=== PATIENT | male | born 2005 | race Caucasian/White ===

== ENCOUNTER 2024-03-29 19:12 | Emergency (ER) | payer BC, SELFPAY ==
[2024-03-29] VITALS (18 sets, daily range): BP systolic 126–150; BP diastolic 72–86; PULSE 70–76; TEMP 36.6–37.1; O2SAT 96–100; BMI 21.7
--- NOTE | 2024-03-29 19:37 | ED.NAVMDI1 ---
HPI - Nausea/Vomiting/Diarrhea General Chief complaint: Nausea/Vomiting/Diarrhea Stated complaint: VOMITING Time Seen by Provider: 03/29/24 19:25 Source: patient Mode of arrival: walk-in History of Present Illness HPI Narrative: This 18-year-old male who is home for [facility] is brought to the emergency department by his mother for evaluation of nausea and vomiting. The patient has had similar symptoms in the past and has had endoscopy at [facility]. The patient states that the symptoms started last summer when the patient was on vacation with his girlfriend's family and was out to dinner and started feeling nauseated. He has been having episodes of nausea and vomiting for the past 2 days. He cannot count the number of times he has vomited. He flatly denies that he uses any marijuana products. He denies any abdominal pain. He has lost weight. He is a college student and also plays football. The patient has recently been seen by [facility] and has an appointment tomorrow. He was started on Zoloft 2 days ago. The mother states he had reflux as a child. A biopsy was taken when he had his endoscopy that was normal. He has not had any diarrhea. He states that he vomits sometimes spit, sometimes bile and if he has eaten he vomits the food he has eaten. Related Data Allergies Allergy/AdvReac Type Severity Reaction Status Date / Time azithromycin (From Zithromax) Allergy Severe Hives Verified 03/29/24 19:23 ceftriaxone (From Rocephin) Allergy Severe Hives Verified 03/29/24 19:23 acutain Allergy Severe Rash Uncoded 03/29/24 19:23 Review of Systems ROS Status of ROS 10 or more systems reviewed and unremarkable except as noted in history and below [facility] Social History Little interest or pleasure in doing things: not at all Feeling down, depressed, or hopeless: not at all Exam Narrative Exam Narrative: Vital signs and Nursing Notes reviewed: Patient is afebrile with a normal pulse, blood pressure is mildly elevated at 150/86, he is not hypoxic with pulse ox of 100% on room air General: Awake, alert, oriented, no acute distress, shy, tearful, no respiratory distress no active vomiting noted HEENT: Normocephalic atraumatic, mucous membranes are slightly dry, no scleral icterus Neck: Supple, no meningeal signs, no anterior or posterior cervical lymphadenopathy Chest: Lungs are clear to auscultation with good air entry, there is no wheezing rhonchi or rales appreciated no accessory muscle use, patient is speaking in complete sentences-no chest wall tenderness to palpation CVS: Regular rate and rhythm S1-S2, no murmurs rubs or gallops, pulses are brisk and equal bilaterally ABD: Soft, flat, nondistended, nontender, no rebound guarding or rigidity, bowel sounds are normal, no pulsatile masses appreciated Extremities: Moving all extremities, no lower extremity tenderness or swelling noted, negative Homans' sign, pulses are brisk and equal bilaterally Skin: Normal in appearance without rash,pallor, petechiae or purpura Neuro: No focal deficits Constitutional Vital Signs, click to edit/add: Last Vital Signs Temp 98.4 F 03/29/24 22:46 Pulse 70 03/29/24 22:46 Resp 18 03/29/24 22:46 BP 142/74 H 03/29/24 22:46 Pulse Ox 100 03/29/24 22:46 O2 Del Method Room Air 03/29/24 22:46 Course Vital Signs Vital signs: Vital Signs Temperature 97.9 F 03/29/24 19:14 Pulse Rate 76 03/29/24 19:14 Respiratory Rate 16 03/29/24 19:14 Blood Pressure 150/86 H 03/29/24 19:14 Pulse Oximetry 100 03/29/24 19:14 Oxygen Delivery Method Room Air 03/29/24 19:14 Temperature 98.4 F 03/29/24 22:46 Pulse Rate 70 03/29/24 22:46 Respiratory Rate 18 03/29/24 22:46 Blood Pressure 142/74 H 03/29/24 22:46 Pulse Oximetry 100 03/29/24 22:46 Oxygen Delivery Method Room Air 03/29/24 22:46 MDM - Nausea/Vomiting/Diarrhea MDM Narrative Medical decision making narrative: This 18-year-old male is brought to emergency department by his mother for evaluation of 2 days of vomiting. He has had similar symptoms in the past and has had a normal endoscopy. He was recently started on Zoloft after he had some degree of a panic attack while being home from college. The symptoms started last summer. He has had intermittent episodes since that time. The patient states that he vomits almost every day. He flatly denies any marijuana use. He denies any abdominal pain but has had weight loss. An IV was placed and routine labs were ordered. He has a normal white count and hemoglobin. He has an elevated BUN and creatinine likely due to dehydration. He does have a mildly elevated total bilirubin of 1.8. Lipase is normal. Lactic acid is also mildly elevated at 2.1. He received IV fluids, Zofran, Pepcid and 0.5 mg of Ativan. On reevaluation he states he is feeling better and is tolerating oral Gatorade.. The patient has never had a CT scan of the abdomen pelvis as part of his workup. This was ordered during his ER stay at this time. CT scan of the abdomen pelvis is basically normal. The results were discussed with the patient and his mother and he was given a copy for his records and to share with his family doctor. He is feeling better and tolerating Gatorade and a popsicle. He does have follow-up tomorrow with [facility]. I explained to him that his symptoms may be anxiety related but he should continue his proton pump inhibitors, I will give him prescriptions for both Zofran and Reglan as he has used both in the past with different results. He was also given a prescription for Pepcid. He was encouraged to drink plenty of fluids to try to prevent himself from becoming dehydrated, eat small meals and follow-up closely with his family physician and gastroenterology. Medical Records Medical records narrative: The [address] [address] [address] Scan Report Signed Patient: FREDDIE DAVENPORT MR#: [id number] : 2005 Acct:[id number] Age/Sex: 18 / M ADM Date: 03/29/24 Loc: ER Attending Dr: Ordering Physician: Marbella Foy Date of Service: 03/29/24 Procedure(s): CT abdomen pelvis w con Accession Number(s): [id number] cc: FRANK RAMIREZ ~ The [address] [address] Patient Name: FREDDIE DAVENPORT MRN: [id number] date: 2005 Sex: M Assigned Patient Location: ER Current Patient Location: ER Accession/Order Number: [id number] Exam Date: 03/29/2024 21:20 Report Date: 03/29/2024 22:03 At the request of: MARBELLA MARKER Procedure: CT abdomen pelvis w con EXAM: CT abdomen pelvis w con TECHNIQUE: Axial CT images were obtained of the abdomen and pelvis with intravenous contrast. Sagittal and coronal reformatted images were also obtained. Dose reduction techniques were achieved by using automated exposure control and/or adjustment of mA and/or kV according to patient size and/or use of iterative reconstruction technique. HISTORY: N/V elevated LFTs COMPARISON: None. FINDINGS: Lower chest: The lower lungs are clear. Liver: The liver is homogeneous with normal contours and normal size. Gallbladder: The gallbladder is unremarkable. There is no intra or extrahepatic biliary dilatation. Pancreas: The pancreas is homogeneous without evidence for mass lesion or inflammation. Spleen: The spleen is unremarkable without evidence for mass lesion. Adrenal glands: The adrenal glands are unremarkable Kidneys and bladder: The kidneys are unremarkable with no evidence for mass lesion, hydronephrosis or inflammation. The ureters demonstrate normal caliber. The urinary bladder is unremarkable. GI Tract: Stomach is unremarkable. Visualized small bowel is unremarkable without evidence for obstruction or active inflammation. The appendix is unremarkable.The visualized portion of the large bowel is unremarkable. Reproductive: Unremarkable Lymph nodes: No retroperitoneal or abdominal lymphadenopathy. Vascular: The aorta is not dilated. Mesenteric, renal and iliac arteries are patent. Peritoneum: No free intraperitoneal air or fluid. No acute inflammation. Abdominal wall: Unremarkable without acute abnormality. CT/CT abdomen pelvis w con IMPRESSION: No acute abdominal pathology. No acute inflammatory process. No obstructing urinary tract stone. No evidence for bowel obstruction. Electronically authenticated by: RIKI JOHN Date: 03/29/2024 22:03 Lab Data Attestation: I reviewed the patient's lab results. Labs: Lab Results 03/29/24 Range/Units 19:50 WBC 7.9 (4.0-11.0) 10^3/uL RBC 5.80 (4.70-6.10) 10^6/uL Hgb 16.7 (14.0-18.0) g/dL Hct 46.6 (42.0-54.0) % MCV 80.3 (80.0-94.0) fL MCH 28.8 (25.9-34.0) pg MCHC 35.8 H (29.9-35.2) g/dL RDW 11.5 (11.0-15.0) % Plt Count 278 (150-450) 10^3/uL MPV 10.5 (9.5-13.5) fL Neut % (Auto) 77.7 H (43.0-75.0) % Lymph % (Auto) 13.4 L (20.5-60.0) % Sterling % (Auto) 7.4 (1.7-12.0) % Eos % (Auto) 0.4 L (0.9-7.0) % Baso % (Auto) 0.6 (0.2-2.0) % Neut # (Auto) 6.2 (1.4-6.5) 10^3/uL Lymph # (Auto) 1.1 L (1.2-3.8) 10^3/uL Sterling # (Auto) 0.6 (0.3-0.8) 10^3/uL Eos # (Auto) 0.0 (0.0-0.7) 10^3/uL Baso # (Auto) 0.1 (0.0-0.1) 10^3/uL Abs Immat Gran (auto) 0.04 H (0.00-0.03) 10^3/uL Imm/Tot Granulo (auto) 0.5 (0.0-0.5) % Sodium 141 (136-145) mmol/L Potassium 3.4 L (3.5-5.1) mmol/L Chloride 102 (98-107) mmol/L Carbon Dioxide 24.5 (21.0-32.0) mmol/L Anion Gap 17.9 BUN 22.0 H (7.0-18.0) mg/dL Creatinine 1.33 H (0.70-1.30) mg/dL Est GFR ( Amer) >60 (>=60 mL/min/1.73m^2) Est GFR (Non-Af Amer) >60 (>=60 mL/min/1.73m^2) BUN/Creatinine Ratio 16.5 Glucose 109 H (74-106) mg/dL Lactate 2.1 H (0.4-2.0) mmol/L Calcium 10.2 H (8.5-10.1) mg/dL Total Bilirubin 1.8 H (0.2-1.0) mg/dL AST 13 L (15-37) U/L ALT 22 (16-63) U/L Alkaline Phosphatase 99 (46-116) U/L Total Protein 8.2 (6.4-8.2) g/dL Albumin 4.7 (3.4-5.0) g/dL Globulin 3.5 g/dL Albumin/Globulin Ratio 1.3 Lipase 16.0 (16.0-77.0) U/L Discharge Plan Discharge Chief Complaint: Nausea/Vomiting/Diarrhea Clinical Impression: Nausea and vomiting, Mild dehydration Patient Disposition: Home, Self-Care Time of Disposition Decision: 22:33 Condition: Good Print Language: Vietnamese Instructions: Dehydration (ED), Acute Nausea and Vomiting (ED) Referrals: FRANK RAMIREZ [Primary Care Provider] - 1 week Discharge Date/Time: 03/29/24 22:50
[2024-03-29 20:02] LABS: Basophils Absolute Auto 0.1 10^3/uL (0.0-0.1); Basophils Percent Auto 0.6 % (0.2-2.0); Eosinophils Percent Auto 0.4 % (0.9-7.0); Hematocrit 46.6 % (42.0-54.0); Hemoglobin 16.7 g/dL (14.0-18.0); Immature Granulocytes Abs Auto 0.04 10^3/uL (0.00-0.03); Immature Granulocytes Pct Auto 0.5 % (0.0-0.5); Lymphocytes Absolute Auto 1.1 10^3/uL (1.2-3.8); Lymphocytes Percent Auto 13.4 % (20.5-60.0); Mean Corpuscular HGB Conc 35.8 g/dL (29.9-35.2); Mean Corpuscular Hemoglobin 28.8 pg (25.9-34.0); Mean Corpuscular Volume 80.3 fL (80.0-94.0); Mean Platelet Volume 10.5 fL (9.5-13.5); Monocytes Absolute Auto 0.6 10^3/uL (0.3-0.8); Monocytes Percent Auto 7.4 % (1.7-12.0); Neutrophils Absolute Auto 6.2 10^3/uL (1.4-6.5); Neutrophils Percent Auto 77.7 % (43.0-75.0); Platelet Count 278 10^3/uL (150-450); Red Cell Distribution Width 11.5 % (11.0-15.0); White Blood Count 7.9 10^3/uL (4.0-11.0)
[2024-03-29] MEDS: 0.9 % SODIUM CHLORIDE 1,000 ML 1000 ML IV (20:19)
[2024-03-29] MEDS: FAMOTIDINE/PF 20 MG/2 ML VIAL IV (20:20)
[2024-03-29] MEDS: ONDANSETRON PF 4 MG/2 ML VIAL IV (20:20)
[2024-03-29] MEDS: LORAZEPAM 2 MG/ML VIAL 0.5 MG IV (20:20)
[2024-03-29 20:26] LABS: Alanine Aminotransferase 22 U/L (16-63); Albumin Globulin Ratio 1.3; Albumin Level 4.7 g/dL (3.4-5.0); Alkaline Phosphatase 99 U/L (46-116); Anion Gap 17.9; Aspartate Amino Transferase 13 U/L (15-37); BUN Creatinine Ratio 16.5; Bilirubin Total 1.8 mg/dL (0.2-1.0); Calcium 10.2 mg/dL (8.5-10.1); Carbon Dioxide 24.5 mmol/L (21.0-32.0); Chloride 102 mmol/L (98-107); Estimated GFR (African America >60 (>=60 mL/min/1.73m^2); Estimated GFR (Non-African Ame >60 (>=60 mL/min/1.73m^2); Globulin 3.5 g/dL; Glucose 109 mg/dL (74-106); Potassium 3.4 mmol/L (3.5-5.1); Sodium 141 mmol/L (136-145); Total Protein 8.2 g/dL (6.4-8.2)
[2024-03-29 20:27] LABS: Lactate/Lactic Acid 2.1 mmol/L (0.4-2.0)
--- NOTE | 2024-03-29 21:00 | CT_ITS ---
[address] [address] Patient Name: FREDDIE DAVENPORT MRN: [id number] date: 2005 Sex: M Assigned Patient Location: ER Current Patient Location: Accession/Order Number: [id number] Exam Date: 03/29/2024 21:20 Report Date: 03/29/2024 22:03 At the request of: LC MARKER Procedure: CT abdomen pelvis w con EXAM: CT abdomen pelvis w con TECHNIQUE: Axial CT images were obtained of the abdomen and pelvis with intravenous contrast. Sagittal and coronal reformatted images were also obtained. Dose reduction techniques were achieved by using automated exposure control and/or adjustment of mA and/or kV according to patient size and/or use of iterative reconstruction technique. HISTORY: N/V elevated LFTs COMPARISON: None. FINDINGS: Lower chest: The lower lungs are clear. Liver: The liver is homogeneous with normal contours and normal size. Gallbladder: The gallbladder is unremarkable. There is no intra or extrahepatic biliary dilatation. Pancreas: The pancreas is homogeneous without evidence for mass lesion or inflammation. Spleen: The spleen is unremarkable without evidence for mass lesion. Adrenal glands: The adrenal glands are unremarkable Kidneys and bladder: The kidneys are unremarkable with no evidence for mass lesion, hydronephrosis or inflammation. The ureters demonstrate normal caliber. The urinary bladder is unremarkable. GI Tract: Stomach is unremarkable. Visualized small bowel is unremarkable without evidence for obstruction or active inflammation. The appendix is unremarkable.The visualized portion of the large bowel is unremarkable. Reproductive: Unremarkable Lymph nodes: No retroperitoneal or abdominal lymphadenopathy. Vascular: The aorta is not dilated. Mesenteric, renal and iliac arteries are patent. Peritoneum: No free intraperitoneal air or fluid. No acute inflammation. Abdominal wall: Unremarkable without acute abnormality. CT/CT abdomen pelvis w con IMPRESSION: No acute abdominal pathology. No acute inflammatory process. No obstructing urinary tract stone. No evidence for bowel obstruction. Electronically authenticated by: RIKI JOHN Date: 03/29/2024 22:03
--- NOTE | 2024-03-29 21:06 | PC.NURSE ---
this patient was given something to drink by Dr Foy, and i informed this patient of the new order for abdomen ct
--- NOTE | 2024-03-29 21:33 | PC.NURSE ---
patient aware waiting on ct results plus the re draw at 23:50, this patient voices no concerns and shows no signs distress
--- NOTE | 2024-03-29 22:48 | PC.NURSE ---
i gave this patient verbal and paper discharge orders along with 3 Rx and he voices yes to understanding these. at time of discharge this patient voices no concerns and shows no signs of distress
== END 2024-03-29 22:50 | disposition home or self-care (01) ==
PROVIDERS: Emergency Provider Emergency Medicine; PCP Family Medicine
DX: E86.0 Dehydration (principal); R11.2 Nausea with vomiting, unspecified
CPT/HCPCS: 36415; 74177; 80053; 83605; 83690; 85025; 96361; 96374; 96375; 99285; J2060; J2405; Q9967

== ENCOUNTER 2024-11-01 10:31 | Outpatient (OUT) | payer BC, SELFPAY ==
--- OUTSIDE RECORDS SUMMARY | 2024-11-01 10:00 | XMS_ITS | Encounter Summary ---
Author Organization [facility] Address [address] [place] [address] Care Team Providers Care Geriatric Social Worker Name Role Phone Raad Armstrong MD Primary Care Provider [phone] Jasmine Walter [facility] Unavailable [phone] Encounter Details Date Type Department Care Team (Late st Contact Info) Description 11/01/2024 10:00 AM EDT Office Visit [facility] [address] [place] [id number] Lynne Grimes, PHYSICS TEACHER [address] [place] [address] Acute pain of both knees (Primary Dx) Social History Tobacco Use Types Packs/Day Years Used Date Smoking Tobacco: Never Smokeless Tobacco: Never Tobacco Cessation:Counseling Given: Yes Alcohol Use Standard Drinks/Week Comments Not Currently 0 (1 standard drink = 0.6 oz pur e alcohol) caffiene- none AUDIT-C Answer Date Recorded Q1: How often do you have a drink containing alc ohol? Monthly or less 03/28/2024 Q2: How many drinks containi ng alcohol do you have on a typical day when you are drinking? 1 or 2 03/28/2024 Q3: How often do you have si x or more drinks on one occasion? Never 03/28/2024 PHQ-2 Answer Date Recorded Patient Health Questionnaire-2 Score 0 11/01/2024 Education Answer Date Recorded What is the highest level of school you have completed or the highest degree you have received? Some college, no degree 03/28/2024 Sex and Gender Information Value Date Recorded Sex Assigned at Not on file Legal Sex Male 6:43 PM EDT Gender Identity Not on file Sexual Orientation Not on file Occupation Industry Job Start Date Job End Date [employer] Not on file Not on file Not on file documented as of this encounter Last Filed Vital Signs Vital Sign Reading Time Taken Comments Blood Pressure 132/64 11/01/2024 10:04 AM EDT Pulse 84 11/01/2024 10:04 AM EDT Temperature - - Respiratory Rate 16 11/01/2024 10:04 AM EDT Oxygen Saturation 97% 11/01/2024 10:04 AM EDT Inhaled Oxygen Concentration - - Weight 85.7 kg (189 lb) 11/01/2024 10:04 AM EDT Height 182.9 cm (6') 11/01/2024 10:04 AM EDT Body Mass Index 25.63 11/01/2024 10:04 AM EDT documented in this encounter Functional Status * Over the past 2 weeks, how often have you been bothered by any of the following problems? Question Answer Date of Assessment Author Little interest or pleasure in doing things Not at all 11/01/2024 9:59 AM EDT MAKENZIE WHITEHEAD Feeling down, depressed, or hopeless Not at all 05/2024 9:59 AM EDT MAKENZIE WHITEHEAD Patient Health Questionnaire-2 Score 0 05/2024 9:59 AM EDT MAKENZIE WHITEHEAD documented as of this encounter Progress Notes * Lynne Grimes, ZACARIAS - 11/01/2024 10:00 AM EDT Images from the original note were not included. Subjective Patient ID: Emerson Taylor is a 19 y.o. male who presents for No chief complaint on file.. Emerson presents today forB/L knee pain when he is running or working out. He has had this knee pain for the last2 months . He even was just playing basketball and he had a hard time running. Knee Pain The incident occurred more than 1 week ago. Incident location: noticed it when working out doing squats. There was no injury mechanism. The pain is present in the right knee and left knee. The quality of the pain is described as aching. The pain is at a severity of 7/10 (pain is worse when running). The pain is moderate. The pain has been Fluctuating since onset. He reports no foreign bodies present. The symptoms are aggravated by weight bearing (running). He has tried ice and NSAIDs (ibuprofen) for the symptoms. The treatment provided mild relief. Over the past 2 weeks, how often have you been bothered by any of the following problems? Little interest or pleasure in doing things: Not at all Feeling down, depressed, or hopeless: Not at all Patient Health Questionnaire-2 Score: 0 Current Outpatient Medications on File Prior to Visit Medication Sig Dispense Refill buPROPion XL (Wellbutrin XL) 150 MG 24 hr tablet Take 150 mg by mouth in the morning. Multiple Vitamins-Minerals (MULTIVITAMIN GUMMIES MENS PO) Take by mouth (Patient not taking: Reported on 05/09/2024) omeprazole (PriLOSEC) [address] capsule Take 40 mg by mouth in the morning and 40 mg in the evening.Take before meals. No current facility-administered medications on file prior to visit. I have reviewed and reconciled the history and medication list with the patient today. Allergies Allergen Reactions Azithromycin Rash and Swelling Was a baby and not sure about allergy Ceftriaxone Hives and Swelling Was a child and not sure of reaction Social History Tobacco Use Smoking status: Never Smokeless tobacco: Never Vaping Use Vaping status: Never Used Substance Use Topics Alcohol use: Not Currently Comment: caffiene- none Drug use: Never No family history on file. Past Medical History: Diagnosis Date Abnormal laboratory test 11/17/2023 Anxiety Severe acute respiratory syndrome coronavirus 2 (SARS-CoV-2) detected 11/17/2023 Slow transit constipation 11/17/2023 History reviewed. No pertinent surgical history. Visit Vitals Smoking Status Never Review of Systems Constitutional: Negative. HENT: Negative. Eyes: Negative. Respiratory: Negative. Cardiovascular: Negative. Gastrointestinal: Negative. Genitourinary: Negative. Musculoskeletal: Negative. Skin: Negative. Neurological: Negative. Psychiatric/Behavioral: Negative. Objective Physical Exam Vitals reviewed. Constitutional: Appearance: Normal appearance. HENT: Head: Normocephalic. Nose: Nose normal. Mouth/Throat: Mouth: Mucous membranes are moist. Pharynx: Oropharynx is clear. Cardiovascular: Rate and Rhythm: Normal rate. Pulmonary: Effort: Pulmonary effort is normal. Musculoskeletal: Right knee: Swelling and effusion present. Left knee: Swelling and effusion present. Skin: General: Skin is warm and dry. Neurological: General: No focal deficit present. Mental Status: He is alert and oriented to person, place, and time. Psychiatric: Mood and Affect: Mood normal. Behavior: Behavior normal. Thought Content: Thought content normal. Judgment: Judgment normal. Assessment/Plan Diagnoses and all orders for this visit: Acute pain of both knees - predniSONE (Deltasone) 10 MG tablet; Take 4 tablets (40 mg) by mouth Daily for 4 days, THEN 3 tablets (30 mg) Daily for 4 days, THEN 2 tablets (20 mg) Daily for 4 days, THEN 1 tablet (10 mg) Daily for 4 days. - XR knee 3 views bilateral; Future Start the above medications as directed. Advised of potential side effects of the steroid. Patient is to take the steroid with food. Do not take any NSAIDs while on Prednisone, Tylenol ok prn. Encouraged gentle stretches. Advised patient that if symptoms do not improve imaging may be required for further evaluation, PT referral may also be appropriate. No follow-ups on file. documented in this encounter Plan of Treatment Scheduled Orders Name Type Priority Associated Diagnoses Orde r Schedule XR knee 3 views bilateral Imaging Routine Acute pain of both knees Expected: 11/01/2024, Expires: 11/01/2025 documented as of this encounter Visit Diagnoses Diagnosis Acute pain of both knees- Primary documented in this encounter Care Teams Geriatric Social Worker Relationship Specialty Start Date End Date Raad Armstrong MD [address] [facility] [address] [place] [address] PCP - General Family Medicine 09/09/22 Jasmine [facility] [address] [facility] [address] [place] [id number] PCP - Suleman Waller 07/02/24 documented as of this encounter
--- OUTSIDE RECORDS SUMMARY | 2024-11-01 10:36 | XMS_ITS | Clinical Summary ---
Author Organization [facility] Address [address] [place], [place] [id number] Care Team Providers Care Pattern Marking Supervisor Name Role Phone Unavailable Primary Care Provider Unavailabl e Medications omeprazole (PRILOSEC) 40 mg capsule Take 40 mg by mouth two times a day. Active ARIPiprazole (ABILIFY) 2 mg tabletIndication s:Anxiety Take 1 tablet by mouth once daily. Dx: F41.1 90 tablet 1 06/08/2024 Active Active Problems Problem Noted Date Diagnosed Date GERD (gastroesophageal reflux disease) Overview (2024): from infancy Anxiety state Overview (2024): on Zoloft x 4 weeks as of 04/28/24 Encounters Date Type Department Care Team Description 09/29/2024 Get Medical Advice Internal Medicine [address] [id number] Veronica Benjamin MD Abilify from Last 3 Months Family History Medical History Relation Comments Anxiety disorder Brother htn Father shoulder surg Father ty 2 diabetes vs pre diabetes Maternal Grandmoth er diabetes ty 2 Paternal Grandfather IDDM and gr grandfather and uncle Relation Status Comments Brother Alive Father Alive Maternal Grandmother Mother Alive Paternal Grandfather Sister Alive Social History Tobacco Use Types Packs/Day Years Used Date Smoking Tobacco: Never Smokeless Tobacco: Never Tobacco Cessation:Counseling Given: Not Answered Alcohol Use Standard Drinks/Week Comments Not Currently 0 (1 standard drink = 0.6 oz pur e alcohol) [facility] Utilities Answer Date Recorded In the past 12 months has th e [employer], oil, or water [employer] threatened to shut off services in your home? No 05/23/2024 Social Connection and Isolat ion Panel [NHANES] Answer Date Recorded In a typical week, how many times do you talk on the phone with family, friends, or neighbors? Twice a week 05/23/2024 How often do you get togethe r with friends or relatives? Three times a week 05/23/2024 How often do you attend chur ch or congregational services? 1 to 4 times per year 05/23/2024 Do you belong to any clubs o r organizations such as confucianism groups, unions, fraternal or athletic groups, or school groups? Yes 05/23/2024 How often do you attend meet ings of the clubs or organizations you belong to? More than 4 times per year 05/23/2024 Are you , , di vorced, , never , or living with a partner? Never 05/23/2024 PHQ-2 Answer Date Recorded PHQ-2 score 0 05/23/2024 [facility] Answer Date Recorded Do you feel stress - tense, restless, nervous, or anxious, or unable to sleep at night because your mind is troubled all the time - these days? Only a little 05/23/2024 Exercise Vital Sign Answer Date Recorde d On average, how many days pe r week do you engage in moderate to strenuous exercise (like a brisk walk)? 4 days 05/23/2024 On average, how many minutes do you engage in exercise at this level? 60 min 05/23/2024 Hunger Vital Sign Answer Date Recorded Within the past 12 months, y ou worried that your food would run out before you got the money to buy more. Never true 05/23/19 Within the past 12 months, t he food you bought just didn't last and you didn't have money to get more. Never true 05/23/2024 PRAPARE - Transportation Answer Date Re corded In the past 12 months, has l ack of transportation kept you from medical appointments or from getting medications? No 05/05 In the past 12 months, has l ack of transportation kept you from meetings, work, or from getting things needed for daily living? No 05/23/2024 Housing Stability Vital Sign Answer Ta e Recorded In the last 12 months, was t here a time when you were not able to pay the mortgage or rent on time? No 05/23/2024 Number of Times Moved in the Last Year Not on fi le 05/23/2024 Homeless in the Last Year Not on file 2024 Area Deprivation Index Answer Date Isaías rded National Score (1-100), lower number is lower ri sk 63 05/23/2024 State Score (1-10), lower number is lower risk 4 05/23/2024 Data from: https://www.neighborhoodatlas.[facility]/. Last address used for calculation [address] 05/23/2024 Sex and Gender Information Value Date Recorded Sex Assigned at Not on file Legal Sex Male 4:55 PM EST Gender Identity Not on file Sexual Orientation Not on file Last Filed Vital Signs Vital Sign Reading Time Taken Comments Blood Pressure 124/76 2024 10:35 AM EST Pulse 84 2024 10:35 AM EST Temperature 36.9 C (98.4 F) 2024 10:35 AM EST Respiratory Rate 18 2024 10:35 AM EST Oxygen Saturation - - Inhaled Oxygen Concentration - - Weight 71.2 kg (157 lb) 2024 10:35 AM EST Height - - Body Mass Index - - Plan of Treatment Health Maintenance Due Date Last Done Comments Peds To Adult Transition Ini tial Discussion 2015 Peds To Adult Transition Edwige ual Assessment 2017 Meningococcal B Vaccine (3 o f 3 - Trumenba SCDM 3-Dose Series) 01/21/2020 09/20/2019, 06/23/2019 Depression Screening 2021 HIV Screening 2021 Hepatitis C Screening 2021 Covid-19 Vaccine ( - 2023-2 5 season) 2024 Influenza Vaccine (Season Ended) 2025 DTaP,Tdap,Td Vaccine (7 - Td or Tdap) 11/15/2025 11/16/2015, 09/21/2008, 09/12/2004, Additional history exists Hepatitis B Vaccine Completed 2003, 2003, 2003, Additional history exists HPV Vaccine Completed 01/03/2020, 09/01, 06/23/2019 Insurance [place] [id number] BLUE ACCESS PPO
--- OUTSIDE RECORDS SUMMARY | 2024-11-01 10:36 | XMS_ITS | Clinical Summary ---
Author Organization [facility] Address [address] [facility] [place] [address] Care Team Providers Care Mining Plant Operator Name Role Phone Raad Armstrong MD Primary Care Provider [phone] Jasmine Walter [facility]- Unavailable + [phone] Allergies Active Allergy Reactions Criticality Noted Date Comments Azithromycin Rash,Swelling Medium 02/16/2022 Was a baby and not sure about allergy Ceftriaxone Hives,Swelling Medium 02/16/2022 Was a child and not sure of reaction Medications omeprazole (PriLOSEC) [address] capsule Take 40 mg by mouth in the morning and 40 mg in the evening. Take before meals. Active predniSONE (Deltasone) 10 MG tabletIndicatio ns:Acute pain of both knees Take 4 tablets (40 mg) by mouth Daily for 4 days, THEN 3 tablets (30 mg) Daily for 4 days, THEN 2 tablets (20 mg) Daily for 4 days, THEN 1 tablet (10 mg) Daily for 4 days. 40 tablet 5 11/18/19 25 Active Multiple Vitamins-Minera ls (MULTIVITAMIN GUMMIES MENS PO) Take by mouth 11/02/19 25 Discontinu ed(Other) buPROPion XL (Wellbutrin XL) 150 MG 24 hr tablet Take 150 mg by mouth in the morning. 4 11/02/19 25 Discontinu ed(Other) Active Problems Problem Noted Date Diagnosed Date YANELY (generalized anxiety disorder) 03/28/2024 GERD without esophagitis 11/17/2023 Resolved Problems Problem Noted Date Diagnosed Date Resolved Date Other specific joint derange ments of left shoulder, not elsewhere classified 11/17/202311/16 Severe acute respiratory syn drome coronavirus 2 (SARS-CoV-2) detected 11/17/2023 11/17/2023 Slow transit constipation 11/17/2023 Abnormal laboratory test 11/17/2023 Encounters Date Type Department Care Team Description 11/01/2024 10:00 AM EDT Office Visit [facility] [address] [place] [address] [place] [id number] Lynne Grimes, TENNIS INSTRUCTOR Acute pain of both knees (Primary Dx) 11/01/2024 Bamboo flowsheet [facility] [address] [place] [address] [place] [phone] Lynne Grimes, TENNIS INSTRUCTOR 11/01/2024 Travel 10/27/2024 Abstract [facility] [address] [place] [address] [place] [address] Raad Armstrong MD from Last 3 Months Immunizations Immunization Administration Dates Next Due DTaP / Hep B / IPV 2003,2003, 004 DTaP, Unspecified 09/21/2008,09/12/2004 HPV 9-Valent 01/03/2020,09/20/2019,06/23/2019 Hep A, Unspecified 01/03/2020,06/23/2019 Hep B, Adolescent or Pediatric 2003 HiB, unspecified 09/12/2004,2003, 4 IPV 09/21/2008 MMR 09/21/2008,10/15/2004,09/12/2004 Meningococcal B, Recombinant 09/20/2019,06/23/19 20 Meningococcal MCV4P 06/23/2019,11/26/2015 Pneumococcal Conjugate PCV 7 2003,09/28/19 04 Tdap 11/16/2015 Varicella 09/21/2008,08/28/2004 Social History Tobacco Use Types Packs/Day Years [...] file Not on file Not on file Last Filed Vital Signs [...] Mass Index 25.63 11/01/2024 10:04 AM EDT Plan of Treatment Health Maintenance Due Date Last Done Comments Influenza Vaccine (#1) 2025 Insurance [facility] Care Teams Mining Plant Operator Relationship Specialty Start Date End Date Raad Armstrong MD [address] [facility] 110 [place] [address] PCP - General Family Medicine 09/09/22 Jasmine Walter PMHNP- [address] [facility] 160 [place] [address] PCP - Suleman Waller 07/02/24
--- OUTSIDE RECORDS SUMMARY | 2024-11-01 10:36 | XMS_ITS | Encounter Summary ---
Author Organization [facility] Address [address] [facility] [place] [address] Care Team Providers Care Senior Commissions Analyst Name Role Phone Raad Armstrong MD Primary Care Provider [phone] Francisco Mcgraw [facility] Unavailable Unavailable Norma Walterdith PMHNP- Unavailable + [phone] Encounter Details Date Type Department Care Team (Late st Contact Info) Description 10/27/2024 Abstract [facility] [address] [facility] 110 [place] [address] Raad Armstrong MD [address] [facility] 110 [place] [address] Social History Tobacco Use Types Packs/Day Years Used Date Smoking Tobacco: Never Smokeless Tobacco: Never Alcohol Use Standard Drinks/Week Comments Not Currently [...] more drinks on one occasion? Never 03/28/2024 Education Answer Date Recorded What is the [...] on file documented as of this encounter Plan of Treatment Not on file documented as of this encounter Visit Diagnoses Not on filedocumented in this encounter Care Teams Senior Commissions Analyst Relationship Specialty Start Date End Date Raad Armstrong MD 112 [facility] 110 [place] [address] PCP - General Family Medicine 09/09/22 Jasmine Walter PMHNP- 112 [facility] 160 [place] [address] PCP - [facility] 07/02/24 Francisco Mcgraw LPC Nuclear Officer Behavioral Health 06/08/24 10/30/24 documented as of this encounter
--- OUTSIDE RECORDS SUMMARY | 2024-11-01 10:36 | XMS_ITS | Encounter Summary ---
Author Organization [facility] Address [address] [facility] [place] [address] Care Team Providers Care Machine Filler Servicer Name Role Phone Raad Armstrong MD Primary Care Provider [phone] Jasmine Walter HNP-BC Unavailable [phone] Francisco Mcgraw LPC Unavailable Unavailable Lynne Grimes FERRY BOAT CAPTAIN Unavailable [phone] Jasmine Walter PMHNP-BC Unavailable [phone] Encounter Details Date Type Department Care Team (Late st Contact Info) Description 04/20/2024 Abstract [facility] 112 [facility] 110 [place] [address] Raad Armstrong MD [address] [facility] 110 [place], [place] [id number] Social History Tobacco Use Types Packs/Day Years Used Date Smoking Tobacco: Never Smokeless Tobacco: Never Alcohol Use Standard Drinks/Week Comments Not Asked 0 (1 standard drink = 0.6 oz [...] on filedocumented in this encounter Care Teams Machine Filler Servicer Relationship Specialty Start Date End Date Raad Armstrong MD [address] [facility] 110 [place] [address] PCP - General Family Medicine 09/09/22 Lynne Grimes, ZACARIAS [address] [facility] 110 [place] [address] PCP - [place] [employer] 05/04/24 Jasmine Walter PMHNPAARON [address] [facility] 160 [place] [address] PCP - [place] [employer] 07/02/24 Jasmine Walter PMHNPAARON [address] [facility] 160 [place] [address] Nurse Practitioner Behavioral Health 03/28/24 06/22/24 Francisco Mcgraw LPC Occupational Therapy Supervisor Behavioral Health 06/08/24 10/30/24 documented as of this encounter
--- OUTSIDE RECORDS SUMMARY | 2024-11-01 10:36 | XMS_ITS | Encounter Summary ---
Author Organization [facility] Address [address] [facility] [place] [address] Care Team Providers Care Network Operations Lead Name Role Phone Raad Armstrong MD Primary Care Provider [phone] Jasmine Walter HNP-BC Unavailable [phone] Francisco Mcgraw LPC Unavailable Unavailable Lynne Grimes FUNDRAISING SALE REPRESENTATIVE Unavailable [phone] Jasmine Walter PMHNP-BC Unavailable [phone] Encounter Details Date Type Department Care Team (Late st Contact Info) Description 2024 Abstract [facility] 112 [facility] 110 [place] [address] Raad Armstrong MD [address] [facility] 110 [place], [place] [phone] Social History Tobacco Use Types Packs/Day Years [...] on filedocumented in this encounter Care Teams Network Operations Lead Relationship Specialty Start Date End Date Raad Armstrong MD [address] [facility] 110 [place] [address] PCP - General Family Medicine 09/09/22 Lynne Grimes, ZACARIAS [address] [facility] 110 [place] [address] PCP - [place] [employer] 05/04/24 Jasmine Walter PMHNPAARON [address] [facility] 160 [place] [address] PCP - [place] [employer] 07/02/24 Jasmine Walter PMHNPAARON [address] [facility] 160 [place] [address] Nurse Practitioner Behavioral Health 03/28/24 06/22/24 Francisco Mcgraw LPC Family Medicine Physician Assistant Behavioral Health 06/08/24 10/30/24 documented as of this encounter
--- OUTSIDE RECORDS SUMMARY | 2024-11-01 10:36 | XMS_ITS | Encounter Summary ---
Author Organization [facility] Address [address] [facility] [place] [address] Care Team Providers Care Change Control Specialist Name Role Phone Raad Armstrong MD Primary Care Provider [phone] Jasmine Walter PMHNP-BC Unavailable [phone] Francisco Mcgraw LPC Unavailable Unavailable Lynne Grimes CHANNEL MACHINE OPERATOR Unavailable [phone] Jasmine Walter PMHNP-BC Unavailable [phone] Encounter Details Date Type Department Care Team (Late st Contact Info) Description 12/22/2023 Abstract [facility] [address] [facility] 110 [place] [address] Raad Armstrong MD [address] [facility] 110 [place] [address] Social History Tobacco Use Types Packs/Day Years Used Date Smoking Tobacco: Never Assessed Sex and Gender Information Value Date Recorded Sex Assigned at Not on file Legal Sex Male 6:43 PM EDT Gender Identity Not on file Sexual Orientation Not on file documented as of this encounter Plan of Treatment Not on file documented as of this encounter Visit Diagnoses Not on filedocumented in this encounter Care Teams Change Control Specialist Relationship Specialty Start Date End Date Raad Armstrong MD [address] [facility] 110 [place] [address] PCP - General Family Medicine 09/09/22 Lynne Grimes, ZACARIAS [address] [facility] 110 [place] [address] PCP - [place] [employer] 05/04/24 Jasmine [facility] [address] [facility] 160 [place] [address] PCP - [place] [employer] 07/02/24 Jasmine [facility] [address] [facility] 160 [place] [address] Nurse Practitioner Behavioral Health 03/28/24 06/22/24 Francisco Mcgraw LPC Bench Inspector Behavioral Health 06/08/24 10/30/24 documented as of this encounter
--- OUTSIDE RECORDS SUMMARY | 2024-11-01 10:36 | XMS_ITS | Encounter Summary ---
Author Organization [facility] Address [address] [place] [address] Care Team Providers Care Manager Of Community Relations Name Role Phone Unavailable Primary Care Provider Unavailabl e Source Comments In the event this information is protected by the Federal Confidentiality of Alcohol and Drug AbusePatient Records regulations: The Federal rules restrict any use of the information to criminally investigate or prosecute any alcohol or drug abuse patient.[facility] Encounter Details Date Type Department Care Team (Late st Contact Info) Description 06/13/2024 Get Medical Advice Internal Medicine [address] [address] [place] [address] [address] Update Social History Tobacco Use Types Packs/Day Years Used Date Smoking Tobacco: Never Smokeless Tobacco: Never Alcohol Use Standard Drinks/Week Comments Not Currently 0 (1 standard drink = 0.6 oz pur e alcohol) [facility] Utilities Answer Date Recorded In the past 12 months has e electric, gas, oil, or water company threatened to shut off services in your [...] often do you attend chur ch or scientologist services? 1 to 4 times per year 05/23/2024 Do you belong to any clubs o r organizations such as baptist groups, unions, fraternal or athletic groups, or school groups? Yes 05/23/2024 How often do you attend meet ings of the clubs or organizations you belong to? More than 4 times per year 05/23/2024 Are you , , di vorced, , never , or living with a partner? Never 05/23/2024 PHQ-2 Answer Date Recorded PHQ-2 score 0 05/23/2024 [facility] - Occupational Stress Questionnaire Answer Date Recorded [...] is lower risk 4 05/23/2024 Data from: https://www.neighborhoodatlas.medicine.[facility].edu/. Last address used for calculation [address] 05/23/2024 Sex and Gender Information Value Date Recorded Sex Assigned at Not on file Legal Sex Male 4:55 PM EST Gender Identity Not on file Sexual Orientation Not on file documented as of this encounter Plan of Treatment Not on file documented as of this encounter Visit Diagnoses Not on filedocumented in this encounter
--- OUTSIDE RECORDS SUMMARY | 2024-11-01 10:36 | XMS_ITS | Encounter Summary ---
Author Organization [facility] Address [address] [facility] [place] [address] Care Team Providers Care Roller Hand Name Role Phone Raad Armstrong MD Primary Care Provider [phone] Jasmine Walter HNP-BC Unavailable [phone] Francisco Mcgraw LPC Unavailable Unavailable Lynne Grimes [employer] SOLUTIONS ARCHITECT Unavailable [phone] Jasmine Walter PMHNP-BC Unavailable [phone] Encounter Details Date Type Department Care Team (Late st Contact Info) Description 04/20/2024 Abstract [facility] 112 [facility] 110 [place] [address] Raad Armstrong MD [address] [facility] 110 [place], [place] [address] Social History Tobacco Use Types Packs/Day Years [...] on filedocumented in this encounter Care Teams Roller Hand Relationship Specialty Start Date End Date Raad Armstrong MD [address] [facility] 110 [place] [address] PCP - General Family Medicine 09/09/22 Lynne Grimes, ZACARIAS [address] [facility] 110 [place] [address] PCP - [place] [employer] 05/04/24 Jasmine Walter PMHNPAARON [address] [facility] 160 [place] [address] PCP - [place] [employer] 07/02/24 Jasmine Walter PMHNPAARON [address] [facility] 160 [place] [address] Nurse Practitioner Behavioral Health 03/28/24 06/22/24 Francisco Mcgraw LPC Vp Informatics Behavioral Health 06/08/24 10/30/24 documented as of this encounter
--- OUTSIDE RECORDS SUMMARY | 2024-11-01 10:36 | XMS_ITS | Encounter Summary ---
Author Organization [facility] Address [address] [place] [facility] [place] [address] Care Team Providers Care Hack Driver Name Role Phone Raad Armstrong MD Primary Care Provider [phone] Jasmine Walter PMHNP-BC Unavailable [phone] Francisco Mcgraw LPC Unavailable Unavailable Lynne Grimes CAT OPERATOR Unavailable [phone] Jasmine Walter PMHNP-BC Unavailable [phone] Encounter Details Date Type Department Care Team (Late st Contact Info) Description 12/22/2023 Abstract [facility] [address] [facility] 110 [place] [address] Raad Armstrong MD [address] [facility] 110 [place] [address] Social History Tobacco Use Types Packs/Day Years [...] on filedocumented in this encounter Care Teams Hack Driver Relationship Specialty Start Date End Date Raad Armstrong MD [address] [facility] 110 [place] [address] PCP - General Family Medicine 09/09/22 Lynne Grimes, ZACARIAS [address] [facility] 110 [place] [address] PCP - [place] [employer] 05/04/24 Jasmine [facility] 112 [facility] 160 [place] [address] PCP - [place] [employer] 07/02/24 Jasmine [facility] 112 [facility] 160 [place] [address] Nurse Practitioner Behavioral Health 03/28/24 06/22/24 Francisco Mcgraw LPC Vice President Of Customer Service Behavioral Health 06/08/24 10/30/24 documented as of this encounter
--- OUTSIDE RECORDS SUMMARY | 2024-11-01 10:36 | XMS_ITS | Encounter Summary ---
Author Organization [facility] Address [address] [place] [address] Care Team Providers Care Mobile Ui/Ux Designer Name Role Phone Unavailable Primary Care Provider Unavailabl e Source Comments In the event this information is protected by the Federal Confidentiality of Alcohol and Drug AbusePatient Records regulations: The Federal rules restrict any use of the information to criminally investigate or prosecute any alcohol or drug abuse patient.[facility] Encounter Details Date Type Department Care Team (Late st Contact Info) Description 06/08/2024 Get Medical Advice Internal Medicine [address] [address] [place] [address] [address] Update Social History Tobacco Use Types Packs/Day Years Used Date Smoking Tobacco: Never Smokeless Tobacco: Never Alcohol Use Standard Drinks/Week Comments Not Currently 0 (1 standard drink = 0.6 oz pur e alcohol) [facility] Utilities Answer Date Recorded In the [...] often do you attend chur ch or jew services? 1 to 4 times per year 05/23/2024 Do you belong to any clubs o r organizations such as episcopal groups, unions, fraternal or athletic groups, or school groups? Yes 05/23/2024 How often do you attend meet ings of the clubs or organizations you belong to? More than 4 times per year 05/23/2024 Are you , , di vorced, , never , or living with a partner? Never 05/23/2024 PHQ-2 Answer Date Recorded PHQ-2 score 0 05/23/2024 [facility] - Occupational Stress [...] is lower risk 4 05/23/2024 Data from: https://www.neighborhoodatlas.medicine.[facility].edu/. Last address used for calculation [address] 05/23/2024 Sex and Gender Information Value Date Recorded Sex Assigned at Not on file Legal Sex Male 4:55 PM EST Gender Identity Not on file Sexual Orientation Not on file documented as of this encounter Plan of Treatment Not on file documented as of this encounter Visit Diagnoses Not on filedocumented in this encounter
--- OUTSIDE RECORDS SUMMARY | 2024-11-01 10:36 | XMS_ITS | Encounter Summary ---
Author Organization [facility] Address [address] [place] [address] Care Team Providers Care Civil Manager Name Role Phone Raad Armstrong MD Primary Care Provider [phone] Jasimne Walter [facility]- Unavailable [phone] Encounter Details Date Type Department Care Team (Latest Contact Info) Description 11/01/2024 Travel Social History Tobacco Use Types Packs/Day Years [...] on file documented as of this encounter Functional Status * Over the past 2 weeks, how often have you been bothered by any of the following problems? Question Answer Date of Assessment Author Little interest or pleasure in doing things Not at all 11/01/2024 9:59 AM MAKENZIE WHITTEN Feeling down, depressed, or hopeless Not at all 05/2024 9:59 AM MAKENZIE WHITTEN Patient Health Questionnaire-2 Score 0 05/2024 9:59 AM MAKENZIE WHITTEN documented as of this encounter Plan of Treatment Not on file documented as of this encounter Visit Diagnoses Not on filedocumented in this encounter Care Teams Civil Manager Relationship Specialty Start Date End Date Raad Armstrong MD 112 [facility] 110 [place] [address] PCP - General Family Medicine 09/09/22 Jasmine Walter PMHNP- 112 [facility] 160 [place] [address] PCP - Suleman Waller 07/02/24 documented as of this encounter
--- OUTSIDE RECORDS SUMMARY | 2024-11-01 10:36 | XMS_ITS | Clinical Summary ---
Author Organization [facility] Address [address] [place] [address] Phone Care Team Providers Care Commissary Production Supervisor Name Role Phone Cherri Martinez MD Primary Care Provider [phone] Social History Tobacco Use Types Packs/Day Years Used Date Smoking Tobacco: Never Assessed Sex and Gender Information Value Date Recorded Sex Assigned at Not on file Legal Sex Male 11:19 AM EST Gender Identity Not on file Sexual Orientation Not on file Plan of Treatment Not on file Care Teams Commissary Production Supervisor Relationship Specialty Start Date End Date Cherri Martinez MD [address] [place] [address] [place] [address] PCP - General 07/01/10
--- OUTSIDE RECORDS SUMMARY | 2024-11-01 10:36 | XMS_ITS | Encounter Summary ---
Author Organization [facility] Address [address] [facility] [place] [address] Care Team Providers Care Office Machinery Or Equipment Installer Name Role Phone Raad Armstrong MD Primary Care Provider [phone] Jasmine Walter PMHNP-BC Unavailable [phone] Francisco Mcgraw LPC Unavailable Unavailable Lynne Grimes CARDROOM PLASTIC CARD GRADER Unavailable [phone] Jasmine Walter PMHNP-BC Unavailable [phone] Encounter Details Date Type Department Care Team (Late st Contact Info) Description 12/30/2023 Abstract [facility] [address] [facility] [facility] 110 [place] [address] Raad Armstrong MD [address] [facility] 110 [place] [address] Social History Tobacco Use Types Packs/Day Years [...] on filedocumented in this encounter Care Teams Office Machinery Or Equipment Installer Relationship Specialty Start Date End Date Raad Armstrong MD [address] [facility] 110 [place] [address] PCP - General Family Medicine 09/09/22 Lynne Grimes, ZACARIAS [address] [facility] 110 [place] [address] PCP - [place] [employer] 05/04/24 [facility] 112 [facility] 160 [place] [address] PCP - [place] [employer] 07/02/24 [facility] 112 [facility] 160 [place] [address] Nurse Practitioner Behavioral Health 03/28/24 06/22/24 Francisco Mcgraw LPC Regional Coordinator Behavioral Health 06/08/24 10/30/24 documented as of this encounter
--- OUTSIDE RECORDS SUMMARY | 2024-11-01 10:36 | XMS_ITS | Encounter Summary ---
Author Organization [facility] Address [address] [facility] [place] [address] Care Team Providers Care Oncology Pharmacist Name Role Phone Raad Armstrong MD Primary Care Provider [phone] Jasmine Walter HNP-BC Unavailable [phone] Francisco Mcgraw LPC Unavailable Unavailable Lynne Grimes TANK CAR MECHANIC Unavailable [phone] Jasmine Walter PMHNP-BC Unavailable [phone] Encounter Details Date Type Department Care Team (Late st Contact Info) Description 04/20/2024 Abstract [facility] 112 [facility] 110 [place] [address] Raad Armstrong MD [address] [facility] 110 [place], [place] [id number] Social History Tobacco Use Types Packs/Day Years [...] on filedocumented in this encounter Care Teams Oncology Pharmacist Relationship Specialty Start Date End Date Raad Armstrong MD [address] [facility] 110 [place] [address] PCP - General Family Medicine 09/09/22 Lynne Grimes, ZACARIAS [address] [facility] 110 [place] [address] PCP - [place] Commercial 05/04/24 Jasmine Walter PMHNPAARON [address] [facility] 160 [place] [address] PCP - [place] Commercial 07/02/24 Jasmine Wlater PMHNPAARON [address] [facility] 160 [place] [address] Nurse Practitioner Behavioral Health 03/28/24 06/22/24 Francisco Mcgraw LPC Social Media Specialist Behavioral Health 06/08/24 10/30/24 documented as of this encounter
--- OUTSIDE RECORDS SUMMARY | 2024-11-01 10:36 | XMS_ITS | Encounter Summary ---
Author Organization [facility] Address [address] [place] [address] Care Team Providers Care Globe Mounter Name Role Phone Unavailable Primary Care Provider Unavailabl e Source Comments In the event this information is protected by the Federal Confidentiality of Alcohol and Drug AbusePatient Records regulations: The Federal rules restrict any use of the information to criminally investigate or prosecute any alcohol or drug abuse patient.[facility] Encounter Details Date Type Department Care Team (Late st Contact Info) Description 09/29/2024 Get Medical Advice Internal Medicine [address] [address] [place] [id number] [address] [place] Social History Tobacco Use Types Packs/Day Years Used Date Smoking Tobacco: Never Smokeless Tobacco: Never Alcohol Use Standard Drinks/Week Comments Not Currently 0 (1 standard drink = 0.6 oz pur e alcohol) [facility] Utilities Answer Date Recorded In the [...] often do you attend chur ch or restorationist services? 1 to 4 times per year 05/23/2024 Do you belong to any clubs o r organizations such as oriental orthodox groups, unions, fraternal or athletic groups, or school groups? Yes 05/23/2024 How often do you attend meet ings of the clubs or organizations you belong to? More than 4 times per year 05/23/2024 Are you , , di vorced, , never , or living with a partner? Never 05/23/2024 PHQ-2 Answer Date Recorded PHQ-2 score 0 05/23/2024 [facility] - [facility] [...] money to buy more. Never true 05/23/19 25 Within the past 12 months, t he [...] is lower risk 4 05/23/2024 Data from: https://www.neighborhoodatlas.medicine.[facility].edu/. Last address used for calculation [address] 05/23/2024 Sex and Gender [...]
--- OUTSIDE RECORDS SUMMARY | 2024-11-01 10:36 | XMS_ITS | Clinical Summary ---
Author Organization [facility] Address [address] [address] Care Team Providers Care Recreational Counselor Name Role Phone Raad Armstrong MD Primary Care Provider [phone] Allergies Active Allergy Reactions Criticality Noted Date Comments Azithromycin Swelling Medium 02/16/2022 Was a baby and not sure about allergy Ceftriaxone Swelling Medium 02/16/2022 Was a child and not sure of reaction Medications ibuprofen (ADVIL;MOTRIN) 400 MG tablet Take 400 mg by mouth every 6 hours as needed for Pain Active pantoprazole (PROTONIX) 20 MG tablet Take 1 tablet by mouth daily Active Family History Medical History Relation Name Comments No Known Problems Father No Known Problems Mother Relation Name Status Comments Father Alive Mother Alive Social History Tobacco Use Types Packs/Day Years Used Date Smoking Tobacco: Never Passive Smoke Exposure: Never Smokeless Tobacco: Never Tobacco Cessation:Counseling Given: Not Answered Alcohol Use Standard Drinks/Week Comments Not Currently 0 (1 standard drink = 0.6 oz pur e alcohol) Interpersonal Safety Domain Source: IP Abuse Scr eening Answer Date Recorded Physical abuse Denies 12/16/2023 Verbal abuse Denies 12/16/2023 Emotional abuse Denies 12/16/2023 Financial abuse Denies 12/16/2023 Sexual abuse Denies 12/16/2023 Sex and Gender Information Value Date Recorded Sex Assigned at Not on file Legal Sex Male 9:19 AM EST Gender Identity Not on file Sexual Orientation Not on file Last Filed Vital Signs Vital Sign Reading Time Taken Comments Blood Pressure 131/85 12/16/2023 11:40 AM EDT Pulse 75 12/16/2023 11:40 AM EDT Temperature 36.8 C (98.2 F) 12/16/2023 11:40 AM EDT Respiratory Rate 14 12/16/2023 11:40 AM EDT Oxygen Saturation 99% 12/16/2023 11:40 AM EDT Inhaled Oxygen Concentration - - Weight 72.6 kg (160 lb) 02/16/2022 11:42 AM EDT Height 180.3 cm (5' 11 ) 02/16/2022 11:42 AM EDT Body Mass Index 22.32 02/16/2022 11:42 AM EDT Plan of Treatment Health Maintenance Due Date Last Done Comments DTaP/Tdap/Td vaccine (1 - Tdap) 2022 COVID-19 Vaccine ( - 2023-2 5 season) 2024 Flu vaccine (Season Ended) 2024 Polio vaccine Aged Out No longer elig ible based on patient's age to complete this topic Insurance Care Teams Recreational Counselor Relationship Specialty Start Date End Date Raad Armstrong MD PCP - General Family Medicine 02/16/22
--- OUTSIDE RECORDS SUMMARY | 2024-11-01 10:36 | XMS_ITS | Encounter Summary ---
Author Organization [facility] Address [address] [facility] [place] [address] Care Team Providers Care Allied Health Professional Name Role Phone Raad Armstrong MD Primary Care Provider [phone] Jasmine Walter [facility]- Unavailable [phone] Encounter Details Date Type Department Care Team (Late st Contact Info) Description 11/01/2024 Bamboo flowsheet [facility] [address] [facility] 110 [place] [phone] Lynne Grimes, POOL NURSE [address] [place] [address] [place] [address] Social History Tobacco Use Types Packs/Day Years [...] on filedocumented in this encounter Care Teams Allied Health Professional Relationship Specialty Start Date End Date Raad Armstrong MD [address] [facility] 110 [place] [address] PCP - General Family Medicine 09/09/22 Jasmine Walter PMHN- [address] [facility] 160 [place] [address] PCP - Suleman Waller 07/02/24 documented as of this encounter
--- NOTE | 2024-11-01 10:44 | XR_ITS ---
[facility] [place] [id number] Patient Name: FREDDIE DAVENPORT MRN: [id number] date: 2005 Sex: M Assigned Patient Location: RAD Current Patient Location: [facility] Accession/Order Number: [id number] Exam Date: 11/01/2024 12:29 Report Date: 11/01/2024 12:30 At the request of: EMILY KENT Procedure: XR knee FARIBA 3V BILATERAL KNEES - 3 views each COMPARISON: None CLINICAL DATA: Bilateral knee pain for the past month. No specific injury however patient runs. AP, lateral lateral and internal oblique views were obtained. There is no acute fracture or dislocation. There is no disproportionate joint space narrowing or significant hypertrophy. No knee effusion or soft tissue swelling is noted. XR/XR knee FARIBA 3V IMPRESSION: NO ACUTE BONY FINDINGS. Impression dictated by: Layla Milton M.D. 11/01/2024 12:30 PM Dictation Location: [place] [address] Electronically authenticated by: [id number] Date: 11/01/2024 12:30
--- OUTSIDE RECORDS SUMMARY | 2024-11-01 10:57 | XMS_ITS | CCD ---
Author Organization [facility] Care Team Providers Care Laborer Driver Name Role Phone ASHLEY, DR MARIE Admitting Unavailable ASHLEY, DR MARIE Attending Unavailable ASHLEY, DR MARIE Consulting Unavailable ASHLEY, DR MARIE Primary Care Unavailable ASHLEY, DR MARIE Attending Unavailable ASHLEY, DR MARIE Consulting Unavailable ASHLEY, DR MARIE Primary Care Unavailable ASHLEY, DR MARIE Admitting Unavailable WEST, DR MIKA Lamb Consulting Unavailable ASHLEY, DR MARIE Admitting Unavailable ASHLEY, DR MARIE Attending Unavailable ASHLEY, DR MARIE Consulting Unavailable ASHLEY, DR MARIE Primary Care Unavailable ALE, DR ALEX Ford Consulting Unavailable NADERER, DR KEYONNA Pacheco Admitting Unavailable ASHLEY, DR MARIE Primary Care Unavailable NADERER, DR KEYONNA Pacheco Attending Unavailable NADERER, DR KEYONNA Pacheco Consulting Unavailable PRASANNA PITTMAN Consulting Unavailable BRITTNY, DAMIR Consulting Unavailable Caryn Franklin Consulting Unavailable Ashley Frank ALTAMIRANO Primary Care Provider FRANK RAMIREZ Primary Care Unavailable MD Louis Fuchs Attending Provider MD Frank Ramirez Primary Care Provider Louis Fuchs Attending Unavailable Louis Fuchs Admitting Unavailable Frank Ramirez Primary Care Unavailable [place] Frank ALTAMIRANO Primary Care Provider [phone] Cecelia Wadlron NP Unavailable [phone] Unavailable Primary Care Provider UnavailCODI Carlos Attending Unavailable CECELIA WALDRON Attending Unavailable FRANK RAMIREZ Referring Unavailable LYNNE GRIMES Attending Unavailable FRANCISCO ZEPEDA Attending Unavailable FRANCISCO ZEPEDA Attending Unavailable CECELIA WALDRON Attending Unavailable VERONICA QIU Referring Unavailable VERONICA QIU Attending Unavailable VERONICA QIU Attending Unavailable Frank Ramirez MD Primary Care Provider Frank Ramirez MD Primary Care Provider [phone] Louis Fuchs MD Attending Provider Jose Angel HNP-Cecelia Unavailable [phone] Allergies Allergy Classification Reported Allergen(s) Allergy Type Date of Onset Reaction(s) Facility (1 source) Azithromycin Drug Allergy 0 [facility] Repository (1 source) cefTRIAXone Drug Allergy 0 [facility] Repository (18 sources) Azithromycin Drug Allergy 2 Swelling, Rash [facility] (18 sources) cefTRIAXone Drug Allergy 2 Swelling, Hives [facility] Work Phone: (1 source) Azithromycin Drug Allergy 4 [facility] Repository (1 source) cefTRIAXone Drug Allergy 4 [facility] Repository (1 source) ISOtretinoin Drug Allergy 5 Joint Pain [facility] Medications Current Medications Medication Drug Class(es) Dates Sig (Normalized) Sig (Original) ARIPiprazole 2 mg oral tablet (5 sources) Atypical Antipsychotic Start: 06-08-2024 take 1 tablet by mouth once daily ARIPiprazole (ABILIFY) 2 mg tablet Indications: Anxiety Take 1 tablet by mouth once daily. Dx: F41.1 90 tablet 1 06/08/2024 Active Start: 05-11-2024 End: 06-08-2024 take 1 tablet by mouth once daily ARIPiprazole (ABILIFY) 2 mg tablet Indications: Anxiety Take 1 tablet by mouth once daily. 30 tablet 2 05/11/2024 06/08/2024 Discontinued 24 hr buPROPion hydrochloride 150 mg extended release oral tablet (10 sources) Aminoketone Start: 2024 End: 11-01-2024 take 1 tablet by mouth every twenty-four hours in the morning buPROPion XL (Wellbutrin XL) 150 MG 24 hr tablet Take 150 mg by mouth in the morning. 2024 11/01/2024 Discontinued (Other) Start: 2024 take 1 tablet by once daily buPROPion XL (WELLBUTRIN XL) 150 mg 24 hr tablet Take 1 tablet by mouth once daily. 30 tablet 2 2024 Active ibuprofen 400 mg oral tablet (2 sources) Nonsteroidal Anti-inflammatory Drug take 1 tablet by mouth every six hours as needed for pain ibuprofen (ADVIL;MOTRIN) 400 MG tablet Take 400 mg by mouth every 6 hours as needed for Pain Active iv contrast (will be provided with radiology test) (1 source) Start: 2024 End: 2024 inject 1 dose intravenously once iv contrast (will be provided with radiology test) Indications: Recurrent vomiting MRI Brain Inject, intravenously, once for 1 dose.No IV access, insert saline lock prior to beginning of sedation, infusion, injection of imaging exam.Discontinue saline lock post exam. If Pt. has a central line or IVAD, may access for administration according to line specific nursing protocol.Once exam is complete flush line and de-access according to line specific nursing protocol in the MR contrast administration guidelines link 1 Each 05/12/2024 05/13/2024 Active Multiple Vitamins-Mineral s (MULTIVITAMIN GUMMIES MENS PO) (14 sources) End: 2024 Multiple Vitamins-Minerals (MULTIVITAMIN GUMMIES MENS PO) Take by mouth 11/01/2024 Discontinued (Other) Multiple Vitamin s-Minerals (MULTIVITAMIN GUMMIES MENS PO) Take by mouth Active omeprazole 40 mg delayed release oral capsule (20 sources) Proton Pump Inhibitor Start: 10-27-2024 take 1 capsule by mouth once daily Omeprazole 40 mg capsule,delayed release(DR/EC) Active 40 MG PO Daily October 27, 2024 1:05pm Complies with drug therapy Start: 01-07-2024 End: 10-27-2024 take 1 capsule by mouth twice daily Omeprazole 40 mg capsule,delayed release(DR/EC) Discontinued 40 MG PO Twice daily 60 January 07, 2024 9:35am October 27, 2024 1:07pm Start: 12-21-2023 End: 01-07-2024 take 1 capsule by mouth once daily Omeprazole 40 mg capsule,delayed release(DR/EC) Discontinued 40 MG PO Daily December 21, 2023 12:00am January 07, 2024 9:36am predniSONE 10 mg oral tablet (2 sources) Start: 11-01-2024 End: 11-17-2024 take 4 tablets by mouth once daily, then take 3 tablets by mouth once daily, then take 2 tablets by mouth once daily, then take 1 tablet by mouth once daily predniSONE (Deltasone) 10 MG tablet Indications: Acute pain of both knees Take 4 tablets (40 mg) by mouth Daily for 4 days, THEN 3 tablets (30 mg) Daily for 4 days, THEN 2 tablets (20 mg) Daily for 4 days, THEN 1 tablet (10 mg) Daily for 4 days. 40 tablet 11/01/2024 11/17/2024 Active sertraline 25 mg oral tablet (13 sources) Serotonin Reuptake Inhibitor Start: 04-26-2024 End: 05-26-2024 take 2 tablets by mouth once daily sertraline (Zoloft) 25 MG tablet Indications: YANELY (generalized anxiety disorder) (CMS/HCC) Take 2 tablets (50 mg) by mouth Daily 60 tablet 04/26/2024 05/09/2024 Discontinued (Side effects) Start: 03-28-2024 End: 10-27-2024 take 1 tablet by mouth once daily Sertraline 25 mg tablet Discontinued 25 MG PO Daily April 26, 2024 1:00am October 27, 2024 12:54pm Completed/Discontinued Medications Medication Drug Class(es) Dates Sig (Normalized) Sig (Original) famotidine 20 mg oral tablet (1 source) Histamine-2 Receptor Antagonist Start: 04-26-2024 End: 04-26-2024 take 1 tablet by mouth once daily Famotidine 20 mg tablet Discontinued 20 MG PO Daily April 26, 2024 1:00am April 26, 2024 12:14pm LORazepam 0.5 mg oral tablet (10 sources) Benzodiazepine Start: 04-26-2024 End: 10-27-2024 take 1 tablet by mouth once daily Lorazepam 0.5 mg tablet Discontinued 0.5 MG PO Daily April 26, 2024 1:00am October 27, 2024 12:54pm Start: 03-30-2024 End: 05-09-2024 take 1 tablet by mouth every six hours for anxiety LORazepam (Ativan) 0.5 MG tablet Indications: YANELY (generalized anxiety disorder) (CMS/HCC) Take 1 tablet (0.5 mg) by mouth every 6 (six) hours if needed for anxiety 90 tablet 03/30/2024 05/09/2024 Discontinued (Therapy completed) Magnesium (1 source) Start: 04-26-2024 End: 10-27-2024 take 1 tablet by mouth once daily Magnesium 200 mg tablet Discontinued 200 MG PO Daily April 26, 2024 1:00am October 27, 2024 12:54pm pantoprazole 40 mg delayed release oral tablet (5 sources) Proton Pump Inhibitor Start: 12-09-2023 End: 03-28-2024 take 1 tablet by mouth once daily as needed Pantoprazole 40 mg tablet,delayed release (DR/EC) Discontinued 40 MG PO Daily as needed for acid reflux December 18, 2023 12:00am December 21, 2023 1:12pm take 1 tablet by mouth once eleazar y pantoprazole (PROTONIX) 20 MG tablet Take 1 tablet by mouth daily Active Problems Active Problems Problem Classification Problem Date Documented Date Episodic/Chronic Anxiety disorders (20 sources) Generalized anxiety disorder; Translations: [Generalized anxiety disorder] Onset: 03-28-2024 03-28-2024 Chronic Esophageal disorders (20 sources) Gastroesophageal reflux disease without esophagitis; Translations: [Gastro-esophageal reflux disease without esophagitis] Onset: 11-17-2023 11-17-2023 Chronic Nausea and vomiting (16 sources) Vomiting, unspecified; Translations: [Nausea] Onset: 04-12-2021 Episodic Nonspecific chest pain (4 sources) Chest pain, unspecified; Translations: [CHEST PAIN UNSPECIFIED] Onset: 05-11-2021 Episodic Other liver diseases (1 source) Increased bilirubin level; Translations: [Unspecified jaundice] 2024 Episodic Other liver diseases (1 source) Unspecified jaundice; Translations: [Elevated bilirubin] Onset: 2024 Episodic Other non-traumatic joint disorders (2 sources) Pain in right knee; Translations: [Other acute pain] 11-01-2024 Episodic Other nutritional; endocrine; and metabolic disorders (1 source) Hypercalcemia; Translations: [Hypercalcemia] 2024 Chronic Other nutritional; endocrine; and metabolic disorders (1 source) Hypercalcemia; Translations: [Hypercalcemia] Onset: 2024 Chronic Other nutritional; endocrine; and metabolic disorders (1 source) Weight loss; Translations: [Abnormal weight loss] 2024 Episodic Other nutritional; endocrine; and metabolic disorders (1 source) Abnormal weight loss; Translations: [Weight loss] Onset: 2024 Episodic Other screening for suspected conditions (not mental disorders or infectious disease) (4 sources) Unspecified abnormal finding in specimens from other organs, systems and tissues; Translations: [UNS ABN FIND SPEC OTH ORGN SYS TISS] Onset: 05-16-2021 Episodic Other upper respiratory infections (1 source) Common cold; Translations: [Acute nasopharyngitis [common cold]] Episodic Viral infection (1 source) COVID-19; Translations: [COVID-19] Onset: 05-15-2021 Past or Other Problems Problem Classification Problem Date Documented Da te Episodic/Chronic Other gastrointestinal disorders (14 sources) Slow transit constipation; Translations: [Slow transit constipation] Onset: 11-17-2023 Resolved: 11-17-2023 11-17-2023 Episodic Other non-traumatic joint disorders (14 sources) Derangement of left shoulder joint; Translations: [Other specific joint derangements of left shoulder, not elsewhere classified] Onset: 11-17-2023 Resolved: 11-17-2023 11-17-2023 Chronic Viral infection (14 sources) COVID-19; Translations: [Other specified viral infection] Onset: 11-17-2023 Resolved: 11-17-2023 11-17-2023 Episodic Results Test Name Value Interpretation Reference Range Facility [facility] 05-12-2024 [facility] Telephone (NPTWIS) EMERSON TAYLOR ([id number]) 1 M Date Time Provider Department 05/12/24 VERONICA QIU During your visit today, we recorded the following information about you: Patricia Joaquin 05/12/2024 4:54 PM Signed Emerson is calling Veronica Qiu MD today to inform that his insurance requires a 10 business day scheduling period. Patient is going back to school on 05/24. Asking is Dr. Qiu can change the order to STAT. An tentative appt was scheduled for 05/19 patient will need to sing a Financial Responsibility form Patient will also called his insurance today to tried to get a sooner response. Please advise Patient has been identified by name and birthdate. Person calling: self Call patient at: on cell [phone] (home) Was an appointment scheduled: No Closing statement: Results or non-symptom based questions: Thank you for calling [facility], your call will be returned within the next business day. Barb Talley MA 05/13/2024 9:26 AM Signed Please advise ELIAS Schwartz Nevenka, BAKARI 05/13/2024 4:09 PM Signed Veronica Qiu MD Ct (1-3) Nurse [place]1 hour ago (2:58 PM) I don't understand the message and the PSR who took the message has not answered yet. Does he simply want a sooner appointment? Let me know so I can add on. MD Sourav Morris Irene L, MD Mata, Ariela3 hours ago (12:35 PM) which order needs changed to stat ?? Veronica Qiu MD Believe this is regards to MRI order. Please advise. Thanks. Ansley Prescott 05/16/2024 9:11 AM Signed Called patient left , advised to call back if needing to reschedule MRI sooner. The referral looks like it has been authorized and patient should be able to move MRI up, please assist thanks Allergies As of Date: 05/12/2024 (Not on File) Date Reviewed: Never Reviewed Reason for Visit: Patient Question [9870] Prescriptions as of 05/16/2024 - ARIPiprazole (ABILIFY) 2 mg tablet Take 1 tablet by mouth once daily. - omeprazole (PRILOSEC) 40 mg capsule Take 40 mg by mouth two times a day. - buPROPion XL (WELLBUTRIN XL) 150 mg 24 hr tablet Take 1 tablet by mouth once daily. Problem List As Of Date 05/12/2024 Noted Resolved GERD (gastroesophageal reflux disease) [K21.9] Anxiety state [F41.1] Encounter Status:Closed by ANS[facility] PRESCOTT [facility] ETHELEMERSON ([id number]) 1 M Date Time Provider Department 05/12/24 VERONICA QIU ([facility]) [facility] During your visit today, we recorded the following information about you: Ansley Prescott 05/12/2024 2:12 PM Signed Called patient left , advised per chapito message, thanks Allergies As of Date: 05/12/2024 (Not on File) Date Reviewed: Never Reviewed Prescriptions as of 05/12/2024 - iv contrast (will be provided with radiology test) MRI Brain Inject, intravenously, once for 1 dose.No IV access, insert saline lock prior to beginning of sedation, infusion, injection of imaging exam.Discontinue saline lock post exam. If Pt. has a central line or IVAD, may access for administration according to line specific nursing protocol.Once exam is complete flush line and de-access according to line specific nursing protocol in the MR contrast administration guidelines link - ARIPiprazole (ABILIFY) 2 mg tablet Take 1 tablet by mouth once daily. - omeprazole (PRILOSEC) 40 mg capsule Take 40 mg by mouth two times a day. - buPROPion XL (WELLBUTRIN XL) 150 mg 24 hr tablet Take 1 tablet by mouth once daily. Problem List As Of Date 05/12/2024 Noted Resolved GERD (gastroesophageal reflux disease) [K21.9] Anxiety state [F41.1] Encounter Status:Closed by ANSLEY PRESCOTT on 05/12/24 [facility]20[facility] EMERSON TAYLOR ([id number]) 1 M Date Time Provider Department 05/11/24 VERONICA QIU During your visit today, we recorded the following information about you: Veronica Qiu MD 05/11/2024 11:49 AM Signed please pull PA for abilify and let me sign off on this May 11, 2024 MD Lisandro Morris Precious, MA 05/12/2024 10:58 AM Signed PA faxed and confirmation received Allergies As of Date: 05/11/2024 (Not on File) Date Reviewed: Never Reviewed Primary Visit Diagnosis:Anxiety [F41.9] Order(s):ARIPiprazole (ABILIFY) 2 mg tabletTake 1 tablet by mouth once daily.Disp: 30 tabletRfl: 2 Prescriptions as of 05/12/2024 - ARIPiprazole (ABILIFY) 2 mg tablet Take 1 tablet by mouth once daily. - omeprazole (PRILOSEC) 40 mg capsule Take 40 mg by mouth two times a day. - buPROPion XL (WELLBUTRIN XL) 150 mg 24 hr tablet Take 1 tablet by mouth once daily. Problem List As Of Date 05/11/2024 Noted Resolved GERD (gastroesophageal reflux disease) [K21.9] Anxiety state [F41.1] Prescriptions ordered this encounter Disp Refills Start End ARIPIPRAZOLE 2 MG TABLET 30 t* 2 05/11/2024 Route: ORAL Sig: Take 1 tablet by mouth once daily. Encounter Status:Closed by VERONICA QIU on 05/11/24 [facility] AMYLASEon 2024 Amylase [Catalytic activity/Vol] 47 U/L 30 - 104 U/L [facility] Amylase SerPl-cCncon 024 Amylase [Catalytic activity/Vol] 47 U/L Normal 30-104 [facility] [place] Comment on above: Order Comment: Speci men Type: BLOOD SPECIMEN Ordering Facility: [facility] Address: [address] [place] [address] Performed By: #### 2 4321-2, 76687-4, 2731-8, 1798-8 #### [facility] CLIA [id number] [address] [place] [address] [place] [address] [place] Basic metabolic 2000 panelon 2024 Anion gap [Moles/Vol] 13 mmol/L 8 - 15 mmol/L [facility] Calcium [Mass/Vol] 10.6 mg/dL High 8.5 - 10. 2 mg/dL [facility] Chloride [Moles/Vol] 100 mmol/L 98 - 107 mmol/L [facility] CO2 [Moles/Vol] 28 mmol/L 22 - 30 mmol/L [facility] Creatinine [Mass/Vol] 1.10 mg/dL 0.73 - 1.22 mg/dL [facility] GFR/1.73 sq M.predicted among non-blacks MDRD (S/P/Bld) [Vol rate/Area] 98 mL/min/{1.73_m2} - PINF [facility] Comment on above: Estimated Glomerular Filtration Rate (eGFR) is calculated using the 2020 CKD-EPI creatinine equation. This equation utilizes serum creatinine, sex, and age as parameters. The creatinine assay has traceable calibration to isotope dilution-mass spectrometry. Refer to KDIGO guidelines for clinical interpretation. In patients with unstable renal function, e.g. those with acute kidney injury, the eGFR may not accurately reflect actual GFR. Glucose [Mass/Vol] 100 mg/dL High 74 - 99 mg/dL [facility] Comment on above: The [place] Diabete s Association (ADA) provides guidance for cutoff values for fasting glucose and random glucose. The ADA defines fasting as no caloric intake for at least 8 hours. Fasting plasma glucose results between 100 to 125 mg/dL indicate increased risk for diabetes (prediabetes). Fasting plasma glucose results greater than or equal to 126 mg/dL meet the criteria for diagnosis of diabetes. In the absence of unequivocal hyperglycemia, results should be confirmed by repeat testing. In a patient with classic symptoms of hyperglycemia or hyperglycemic crisis, random plasma glucose results greater than or equal to 200 mg/dL meet the criteria for diagnosis of diabetes. Reference: Standards of Medical Care in Diabetes 2016, [place] Diabetes Association. Diabetes Care. 2016.39(Suppl 1). Potassium [Moles/Vol] 4.4 mmol/L 3.7 - 5.1 mmol/L [facility] Sodium [Moles/Vol] 141 mmol/L 136 - 144 mmol/L [facility] Urea nitrogen [Mass/Vol] 19 mg/dL 9 - 24 mg/dL [facility] Anion gap [Moles/Vol] 13 mmol/L Normal 8-15 [facility] Comment on above: Order Comment: Karan jarrett Type: BLOOD SPECIMEN Ordering Facility: [facility] Address: [address] [place] [address] Performed By: #### 2 4321-2, 36491-4, 2730-12, 1797-12 #### [facility] CLIA [id number] [address] [place] [address] [place] Calcium [Mass/Vol] 10.6 mg/dL High 8.5-10.2 [facility] Comment on above: Order Comment: Karan jarrett Type: BLOOD SPECIMEN Ordering Facility: [facility] Address: [address] [place] [address] Performed By: #### 2 4321-2, 51164-5, 2730-12, 1797-12 #### [facility] CLIA [id number] [address] [place] [address] [place] Chloride [Moles/Vol] 100 mmol/L Normal 98-107 [facility] Comment on above: Order Comment: Karan jarrett Type: BLOOD SPECIMEN Ordering Facility: [facility] Address: [address] [place] [address] Performed By: #### 2 4321-2, 79183-3, 2730-12, 1797-12 #### [facility] CLIA [id number] [address] [place] [address] [place] CO2 [Moles/Vol] 28 mmol/L Normal 22-30 [facility] Comment on above: Order Comment: Speci men Type: BLOOD SPECIMEN Ordering Facility: [facility] Address: [address] [place], [place] [address] Performed By: #### 2 4321-2, 40223-7, 2730-12, 1797-12 #### [facility] CLIA [id number] [address] [place] [address] [place] Creatinine [Mass/Vol] 1.10 mg/dL Normal 0.73-1.22 [facility] Comment on above: Order Comment: Speci men Type: BLOOD SPECIMEN Ordering Facility: [facility] Address: [address] [place] [address] Performed By: #### 2 4321-2, 67933-7, 2730-12, 1797-12 #### [facility] CLIA [id number] [address] [place] [address] [place] Creatinine and Glomerular filtration rate.predicted panel (S/P/Bld) 98 mL/min/1.73m??? Normal >=60 [facility] [place] Comment on above: Order Comment: Speci men Type: BLOOD SPECIMEN Ordering Facility: [facility] Address: [address] [place] [address] Result Comment: Jill mated Glomerular Filtration Rate (eGFR) is calculated using the 2020 CKD-EPI creatinine equation. This equation utilizes serum creatinine, sex, and age as parameters. The creatinine assay has traceable calibration to isotope dilution-mass spectrometry. Refer to KDIGO guidelines for clinical interpretation. In patients with unstable renal function, e.g. those with acute kidney injury, the eGFR may not accurately reflect actual GFR. Performed By: #### 2 4321-2, 20879-1, 2730-12, 1797-12 #### [facility] CLIA [id number] [address] [place] [address] [place] Glucose [Mass/Vol] 100 mg/dL High 74-99 [facility] Comment on above: Order Comment: Speci men Type: BLOOD SPECIMEN Ordering Facility: [facility] Address: [address] [place], [place] [id number] Result Comment: The [place] Diabetes Association (ADA) provides guidance for cutoff values for fasting glucose and random glucose. The ADA defines fasting as no caloric intake for at least 8 hours. Fasting plasma glucose results between 100 to 125 mg/dL indicate increased risk for diabetes (prediabetes). Fasting plasma glucose results greater than or equal to 126 mg/dL meet the criteria for diagnosis of diabetes. In the absence of unequivocal hyperglycemia, results should be confirmed by repeat testing. In a patient with classic symptoms of hyperglycemia or hyperglycemic crisis, random plasma glucose results greater than or equal to 200 mg/dL meet the criteria for diagnosis of diabetes. Reference: Standards of Medical Care in Diabetes 2016, [place] Diabetes Association. Diabetes Care. 2016.39(Suppl 1). Performed By: #### 2 4321-2, 76235-0, 2730-12, 1797-12 #### [facility] CLIA [id number] [address] [place] [address] [place] Potassium [Moles/Vol] 4.4 mmol/L Normal 3.7-5.1 [facility] Comment on above: Order Comment: Speci men Type: BLOOD SPECIMEN Ordering Facility: [facility] Address: [address] [place] [address] Performed By: #### 2 4321-2, 20265-6, 2730-12, 1797-12 #### [facility] CLIA [id number] [address] [place] [address] [place] Sodium [Moles/Vol] 141 mmol/L Normal 136-144 [facility] Comment on above: Order Comment: Speci men Type: BLOOD SPECIMEN Ordering Facility: [facility] Address: [address] [place] [address] Performed By: #### 2 4321-2, 34919-8, 2730-12, 1797-12 #### [facility] CLIA [id number] [address] [place], [place] [address] [place] Urea nitrogen [Mass/Vol] 19 mg/dL Normal 9-24 [facility] Comment on above: Order Comment: Speci men Type: BLOOD SPECIMEN Ordering Facility: [facility] Address: [address] [place] [address] Performed By: #### 2 4321-2, 11210-9, 2731-8, 1798-8 #### [facility] CLIA [id number] [address] [place] [address] [facility] CNOVon 2024 CNOV Office Visit ([facility] ) EMERSON TAYLOR ([id number]) 1 M Date Time Provider Department 04/28/24 5:00 PM VERONICA [facility]IU [facility] During your visit today, we recorded the following information about you: Temperature Pulse Respiration Blood pressure 98.4 degrees 84/minute 18/minute 124/76 Weight 71.2 kg Veronica Qiu MD 05/12/2024 12:55 PM Addendum Patient presents with: Nausea: Nausea/vomiting for a few months intermittent, had EGD done, on anxiety meds pt new to me see above In September and October felt well In November was [place] for holiday with GF and went out to eat , felt anxious in restaurant and got up and vomited and unwell since then has lost 20 pounds Hx : GERD as a baby , hx of gagging and GI intolerance, used Tums regularly in the past in HS had improvement of symptoms with zofran and Reglan aslo switched to baseball from wrestling of late vomits and yet has an empty feeling when feels fine can eat everything after finals were done feels more relaxed has had head injuries in past related to football rarely uses etOH feels unwell with etOH uses ativan q am as per gi recc tried homeopathic approach to his overall health sensitive per genetic testing to red 40 usual weight = [address] Fuchs in [facility] plans to see him in 6 mo sees GI locally PAST MEDICAL HISTORY Diagnosis Date Anxiety state on Zoloft x 4 weeks as of 04/28/24 GERD (gastroesophageal reflux disease) from infancy PAST SURGICAL HISTORY Procedure Laterality Date REFERRAL DERMATOLOGY SURGERY skin lesion on buttocks 2010 and 2012 REMOVAL OF HYDROCELE Right 07/27/2005 and hernia FAMILY HISTORY Problem Relation Age of Onset other (htn) Father other (shoulder surg) Father Anxiety disorder Brother other (ty 2 diabetes vs pre diabetes) Maternal Grandmother other (diabetes ty 2) Paternal Grandfather IDDM and gr grandfather and uncle Current Outpatient Medications Medication Sig omeprazole (PRILOSEC) 40 mg capsule Take 40 mg by mouth two times a day. sertraline (ZOLOFT) 25 mg tablet Take 50 mg by mouth. LORazepam (ATIVAN) 0.5 mg Take 0.5 mg by mouth every 6 hours as needed. No current facility-administered medications for this visit. BP 124/76 (BP Site: Left Arm, BP Position: Sitting, BP Cuff Size: Regular Adult) Pulse 84 Temp 36.9 ?C (98.4 ?F) (Oral) Resp 18 Wt 71.2 kg (157 lb) O: PE Alert, cooperative, well-hydrated. Neck supple, no adenopathy. No carotid bruits bilaterally no jugular venous distention . Lungs are clear bilaterally . Heart sounds are of regular rate and rhythm without murmur. Ext- no peripheral edema bilaterally and +adaquate pulses at feet bilaterally . Abdomen: soft, nondistended, nontender, no hepatosplenomegaly or masses, no abdominal bruit IMPRESSIONS/PLANS; Gastroesophageal reflux disease, unspecified whether esophagitis present (primary encounter diagnosis) Anxiety state Recurrent vomiting Hypercalcemia Weight loss Elevated bilirubin in pt with lifelong GI issues and some on/ off stresses now on Current Outpatient Medications Medication Sig omeprazole (PRILOSEC) 40 mg capsule Take 40 mg by mouth two times a day. sertraline (ZOLOFT) 25 mg tablet Take 50 mg by mouth. LORazepam (ATIVAN) 0.5 mg Take 0.5 mg by mouth every 6 hours as needed. No current facility-administered medications for this visit. BP 124/76 (BP Site: Left Arm, BP Position: Sitting, BP Cuff Size: Regular Adult) Pulse 84 Temp 36.9 ?C (98.4 ?F) (Oral) Resp 18 Wt 71.2 kg (157 lb) O: PE Alert, cooperative, well-hydrated. Neck supple, no adenopathy. No carotid bruits bilaterally no jugular venous distention . Lungs are clear bilaterally . Heart sounds are of regular rate and rhythm without murmur. Ext- no peripheral edema bilaterally and +adaquate pulses at feet bilaterally . Abdomen: soft, nondistended, nontender, no hepatosplenomegaly or masses, no abdominal bruit External ears and canals clear bilaterally. TM's normal bilaterally. Nose normal without lesions or discharge; no mucosal swelling. Oropharynx normal. Neck supple without palpable adenopathy. conjuctiva: clear bilaterally IMPRESSIONS/PLANS: Gastroesophageal reflux disease, unspecified whether esophagitis present Anxiety state Recurrent vomiting (primary encounter diagnosis) Hypercalcemia Weight loss Elevated bilirubin in pt with 20 # weight loss seems mildly anxious unclear if he loves his chosen major/ how GPA is going neg eval thus far except for some paltry lab abnormalities rule out hyperthy, hyperparathy, check additional lfts ? Phillip's sw from Zoloft to abilify for weight gain and try Wellbutrin consider abilify consider STUDENT [employer]S COORDINATOR imaging although has no focal neuro issues no CENTENO recc sparing use ativan see orders virtual visit re eval with me in 3-4 w (more content not included)... Normal [facility] Florencia 2024 [facility] Telephone ([facility]) EMERSON TAYLOR ([id number]) 1 M Date Time Provider Department 04/28/24 VERONICA QIU [facility] During your visit today, we recorded the following information about you: Barb Rivera MA 2024 9:30 AM Signed No chief complaint on file. received via electronic Fax. Records have been uploaded to [employer] (via [employer]) and will be available in Chart Review within 24 hours. Barb Rivera MA Records from [facility] [employer] uploaded to scanned documents Allergies As of Date: 2024 (Not on File) Date Reviewed: Never Reviewed Prescriptions as of 05/02/2024 - omeprazole (PRILOSEC) 40 mg capsule Take 40 mg by mouth two times a day. - buPROPion XL (WELLBUTRIN XL) 150 mg 24 hr tablet Take 1 tablet by mouth once daily. Problem List As Of Date 2024 Noted Resolved GERD (gastroesophageal reflux disease) [K21.9] Anxiety state [F41.1] Encounter Status:Closed by BARB RIVERA on 05/02/24 Normal [facility] ESR Westergren method (Bld) [Velocity]on 2024 ESR (Bld) [Velocity] 8 mm/h [facility] Interpretation and review of laboratory results Normal [facility] ESR (Bld) [Velocity] 8 mm/h Normal 0-15 [facility] Comment on above: Order Comment: Speci men Type: BLOOD SPECIMEN Ordering Facility: [facility] Address: [address] [place] [address] Performed By: #### 4 537-7 #### [facility] CLIA [id number] [address] [place], [place] [address] [place] [address] [place] Hepatic function 2000 panelo n 2024 Albumin [Mass/Vol] 5.2 g/dL High 3.9 - 4.9 g/dL [facility] ALP [Catalytic activity/Vol] 97 U/L 38 - 113 U/L [facility] ALT [Catalytic activity/Vol] 15 U/L 10 - 54 U/L [facility] AST [Catalytic activity/Vol] 15 U/L 14 - 40 U/L [facility] Bilirubin [Mass/Vol] 0.9 mg/dL 0.2 - 1.3 mg/dL [facility] Bilirubin.conjugate d [Mass/Vol] 0.2 mg/dL High NINF - 0.2 mg/dL [facility] Protein [Mass/Vol] 7.9 g/dL 6.3 - 8.0 g/dL [facility] Albumin [Mass/Vol] 5.2 g/dL High 3.9-4.9 [facility] Comment on above: Order Comment: Speci men Type: BLOOD SPECIMEN Ordering Facility: [facility] Address: [address] [place] [address] Performed By: #### 2 4321-2, 80683-9, 8, 1797-12 #### [facility] CLIA [id number] [address] [place] [address] [place] ALP [Catalytic activity/Vol] 97 U/L Normal 38-113 [facility] Comment on above: Order Comment: Speci men Type: BLOOD SPECIMEN Ordering Facility: [facility] Address: [address] [place] [address] Performed By: #### 2 4321-2, 35263-1, 8, 1797-12 #### [facility] CLIA [id number] [address] [place] [address] [place] ALT [Catalytic activity/Vol] 15 U/L Normal 10-54 [facility] Comment on above: Order Comment: Speci men Type: BLOOD SPECIMEN Ordering Facility: [facility] Address: [address] [place] [address] Performed By: #### 2 4321-2, 23446-0, 2730-12, 1797-12 #### [facility] CLIA [id number] [address] [place] [address] [place] AST [Catalytic activity/Vol] 15 U/L Normal 14-40 [facility] Comment on above: Order Comment: Speci men Type: BLOOD SPECIMEN Ordering Facility: [facility] Address: [address] [place] [address] Performed By: #### 2 4321-2, 07093-5, 8, 1797-12 #### [facility] CLIA [id number] [address] [place], [place] [address] [place] Bilirubin [Mass/Vol] 0.9 mg/dL Normal 0.2-1.3 [facility] Comment on above: Order Comment: Speci men Type: BLOOD SPECIMEN Ordering Facility: [facility] Address: [address] [place] [address] Performed By: #### 2 4321-2, 40239-9, 2730-8, 1797-12 #### [facility] CLIA [id number] [address] [place] [address] [place] Bilirubin.conjugate d [Mass/Vol] 0.2 mg/dL High <0.2 [facility] Comment on above: Order Comment: Speci men Type: BLOOD SPECIMEN Ordering Facility: [facility] Address: [address] [place] [address] Performed By: #### 2 4321-2, 05287-9, 2730-8, 1797-12 #### [facility] CLIA [id number] [address] [place] [address] [place] Protein [Mass/Vol] 7.9 g/dL Normal 6.3-8.0 [facility] Comment on above: Order Comment: Speci men Type: BLOOD SPECIMEN Ordering Facility: [facility] Address: [address] [place] [address] Performed By: #### 2 4321-2, 79017-6, 8, 1797-12 #### [facility] CLIA [id number] [address] [place] [address] [place] LIPASEon 2024 Lipase [Catalytic activity/Vol] 25 U/L 16 - 61 U/L [facility] Lipase SerPl-cCncon 04-28-20 24 Lipase [Catalytic activity/Vol] 25 U/L Normal 16-61 [facility] Comment on above: Order Comment: Speci men Type: BLOOD SPECIMEN Ordering Facility: [facility] Address: [address] [place] [address] Performed By: #### 3 024-7, 3040-3, 43940-1, 3016-3 #### [facility] CLIA [id number] [address] [place] [address] [place] Lipase [Catalytic activity/V ol]on 2024 Interpretation and review of laboratory results Normal [facility] MAGNESIUMon 2024 Magnesium [Mass/Vol] 2.6 mg/dL High 1.7 - 2.3 mg/dL [facility] Magnesium SerPl-mCncon 04-28 Magnesium [Mass/Vol] 2.6 mg/dL High 1.7-2.3 [facility] Comment on above: Order Comment: Speci men Type: BLOOD SPECIMEN Ordering Facility: [facility] Address: [address] [place] [address] Performed By: #### 3 024-7, 3040-3, 90843-2, 3016-3 #### [facility] CLIA [id number] [address] [place] [address] [place] Magnesium [Mass/Vol]on 04-28 Interpretation and review of laboratory results Abnormal [facility] No Panel Informationon 04-28 Interpretation and review of laboratory results Normal [facility] Interpretation and review of laboratory results Abnormal [facility] Interpretation and review of laboratory results Normal [facility] PTH INTACTon 2024 Parathyrin.intact [Mass/Vol] 34 pg/mL 15 - 65 pg/mL [facility] Parathyrin.intact [Mass/Vol] 34 pg/mL Normal 15-65 [facility] Comment on above: Order Comment: Speci men Type: BLOOD SPECIMEN Ordering Facility: [facility] Address: [address] [place] [address] Performed By: #### 2 4321-2, 00318-7, 2731-8, 1798-8 #### [facility] CLIA [id number] [address] [place] [address] [place] T4 FREE/FREE THYROXINEon Free T4 [Mass/Vol] 1.4 ng/dL 0.9 - 1.7 ng/dL [facility] T4 Free [facility] 12-26-2 024 Free T4 [Mass/Vol] 1.4 ng/dL Normal 0.9-1.7 [facility] Comment on above: Order Comment: Speci men Type: BLOOD SPECIMENOrdering Facility: [facility] Address: [address] [place] [address] Performed By: #### 3 024-7, 3040-3, 82570-5, 3016-3 ####[facility] [id number] [facility] [id number] [address] [place] THYROID STIMULATING HORMONEo n 2024 TSH Qn 2.740 m[IU]/L [facility] TOXICOLOGY SCREEN, ROUTINE U RINEon 2024 Amphetamines Confirm (U) [Mass/Vol] Negative Negative [facility] Comment on above: Cutoff threshold at 1000 ng/mL. Barbiturates Urine Negative Negative [facility] Comment on above: Cutoff threshold at 200 ng/mL. Benzodiazepines Urine Positive Abnormal Negative [facility] Comment on above: Cutoff threshold at 200 ng/mL. Cannabinoids Screen Ql (U) Negative Negative [facility] Comment on above: Cutoff threshold at 50 ng/mL. Cocaine Ql (U) Negative Negative [facility] Comment on above: Cutoff threshold at 300 ng/mL. Ethanol (U) [Mass/Vol] mg/dL NINF - 11 mg/dL [facility] Interpretation and review of laboratory results Abnormal [facility] Opiates Screen Ql (U) Negative Negative [facility] Comment on above: Cutoff threshold at 300 ng/mL. oxyCODONE cutoff Screen (U) [Mass/Vol] Negative Negative [facility] Comment on above: Cutoff threshold at 100 ng/mL. Phencyclidine Ql (U) Negative Negative [facility] Comment on above: Cutoff threshold at 25 ng/mL. Immunoassay screen only. Cross reactivity with other substances can occur with immunoassay screening. Detection of any drug(s) in this urine toxicology panel is presumptive only. These tests are for medical purposes only and should not be used for compliance monitoring, legal, or forensic use. Samples should be within normal physiological conditions (e.g. pH). This assay does not include adulteration/specimen validity testing. In clinical settings, confirmatory testing is at the practitioner's discretion [1]. If clinically indicated, confirmation by high specificity, quantitative methodology, which includes adulteration/specimen validity testing, may be requested on the same specimen through Client Services ([phone]) if contacted within 48 hours of initial testing. [1]Substance Abuse and Mental Health Services Administration (2012). Clinical Drug Testing in Primary Care Technical Assistance Publication Series 32. Department of Health and Human Services, [place], p.10. [facility] Amphetamines Confirm (U) [Mass/Vol] Negative Normal Negative [facility] Comment on above: Order Comment: Speci men Type: URINE SPECIMEN Ordering Facility: [facility] Address: [address] [place] [address] Result Comment: Cuto ff threshold at 1000 ng/mL. Performed By: #### U TOX2 #### [facility] CLIA [id number] [address] [place] [address] [place] BARBITURATES, URINE Negative Normal Negative [facility] Comment on above: Order Comment: Speci men Type: URINE SPECIMEN Ordering Facility: [facility] Address: [address] [place] [address] Result Comment: Cuto ff threshold at 200 ng/mL. Performed By: #### U TOX2 #### [facility] CLIA [id number] [address] [place] [address] [place] BENZODIAZEPINES, UR Positive Abnormal Negative [facility] Comment on above: Order Comment: Speci men Type: URINE SPECIMEN Ordering Facility: [facility] Address: [address] [place] [address] Result Comment: Cuto ff threshold at 200 ng/mL. Performed By: #### U TOX2 #### [facility] CLIA [id number] [address] [place] [address] [place] Cannabinoids Screen Ql (U) Negative Normal Negative [facility] Comment on above: Order Comment: Speci men Type: URINE SPECIMEN Ordering Facility: [facility] Address: [address] [place] [address] Result Comment: Cuto ff threshold at 50 ng/mL. Performed By: #### U TOX2 #### [facility] CLIA [id number] [address] [place] [address] [place] Cocaine Ql (U) Negative Normal Negative [facility] Comment on above: Order Comment: Speci men Type: URINE SPECIMEN Ordering Facility: [facility] Address: [address] [place] [address] Result Comment: Cuto ff threshold at 300 ng/mL. Performed By: #### U TOX2 #### [facility] CLIA [id number] [address] [place] [address] [place] Ethanol (U) [Mass/Vol] <11 Normal <11 [facility] Comment on above: Order Comment: Speci men Type: URINE SPECIMEN Ordering Facility: [facility] Address: [address] [place] [address] Performed By: #### U TOX2 #### [facility] CLIA [id number] [address] [place] [address] [place] Opiates Screen Ql (U) Negative Normal Negative [facility] Comment on above: Order Comment: Speci men Type: URINE SPECIMEN Ordering Facility: [facility] Address: [address] [place] [address] Result Comment: Cuto ff threshold at 300 ng/mL. Performed By: #### U TOX2 #### [facility] CLIA [id number] [address] [place] [address] [place] oxyCODONE cutoff Screen (U) [Mass/Vol] Negative Normal Negative [facility] Comment on above: Order Comment: Speci men Type: URINE SPECIMEN Ordering Facility: [facility] Address: [address] [place] [address] Result Comment: Cuto ff threshold at 100 ng/mL. Performed By: #### U TOX2 #### [facility] CLIA [id number] [address] [place] [address] [place] Phencyclidine Ql (U) Negative Normal Negative [facility] Comment on above: Order Comment: Speci men Type: URINE SPECIMEN Ordering Facility: [facility] Address: [address] [place] [address] Result Comment: Cuto ff threshold at 25 ng/mL. Performed By: #### U TOX2 #### [facility] CLIA [id number] [facility] [place] [place] [address] [place] TSH SerPl-aCncon 2024 TSH Qn 2.740 m[IU]/L Normal 0.270-4.200 [facility] Comment on above: Order Comment: Speci men Type: BLOOD SPECIMENOrdering Facility: [facility] Address: [address] [place] [address] Performed By: #### 3 024-7, 3040-3, 64709-6, 3016-3 ####[facility] [id number] [place] [address] [place] Pathology Request for Lab Co rpon 12-21-2023 Pathology Request for Lab Blake Normal [facility] Comment on above: Order Comment: PATHO LOGY GI SPECIMEN Result Comment: See report. Scanned copy available in EMR. PERFORMED BY: [place] [address] PATHOLOGIST [employer] VIELKA VEGAS M.D. Performed By: #### P ATH TO [facility] #### [address] CBC AUTO DIFFon 05-16-2021 BASO # 0.1 103/ul Normal 0.0-0.1 [facility] Comment on above: Performed By: #### C BC #### [facility] [address] [place] [address] Dr. Elizabeth Valente Basophils/100 WBC (Bld) 0.5 % Normal 0.2-2.0 [facility] Comment on above: Performed By: #### C BC #### [facility] [address] [address] [address] Elizabeth Valente EO # 0.2 103/ul Normal 0.0-0.7 [facility] Comment on above: Performed By: #### C BC #### [facility] [address] [place] [address] Dr. Elizabeth Valente Eosinophils/100 WBC (Bld) 1.4 % Normal 0.9-7.0 [facility] Comment on above: Performed By: #### C BC #### [facility] [address] [place] [address] Dr. Elizabeth Valente Erythrocyte distribution width (RBC) [Ratio] 12.5 % Normal 11.0-15.0 [facility] Comment on above: Performed By: #### C BC #### [facility] [address] [place] [address] Dr. Elizabeth Valente Hematocrit (Bld) [Volume fraction] 44.6 % Normal 42.0-54.0 [facility] Comment on above: Performed By: #### C BC #### [facility] [address] [place] [address] Dr. Elizabeth Valente Hemoglobin (Bld) [Mass/Vol] 15.5 g/dL Normal 14.0-18.0 [facility] Comment on above: Performed By: #### C BC #### [facility] [address] [place] [address] Dr. Elizabeth Valente IG # 0.07 10e3/ul Critically high 0.00-0.03 [facility] Comment on above: Performed By: #### C BC #### [facility] [address] [place] [address] Dr. Elizabeth Valente IG % 0.6 % Critically high 0.0-0.5 [facility] Comment on above: Performed By: #### C BC #### [facility] [address] [place] [address] Dr. Elizabeth Valente LYMPH # 3.0 103/ul Normal 1.2-3.8 [facility] Comment on above: Performed By: #### C BC #### [facility] [address] [place] [address] Dr. Elizabeth Valente Lymphocytes/100 WBC (Bld) 28.0 % Normal 20.5-60.0 [facility] Comment on above: Performed By: #### C BC #### [facility] [address] [place] [address] Dr. Elizabeth Valente MANUAL DIFF REQ NO Normal [facility] Comment on above: Performed By: #### C BC #### [facility] [address] [place] [address] Dr. Elizabeth Valente MCH (RBC) [Entitic mass] 28.7 pg Normal 25.9-34.0 [facility] Comment on above: Performed By: #### C BC #### [facility] [address] [place] [address] Dr. Elizabeth Valente MCHC (RBC) [Mass/Vol] 34.8 g/dL Normal 29.9-35.2 [facility] Comment on above: Performed By: #### C BC #### [facility] [address] [place] [address] Dr. Elizabeth Valente MCV (RBC) [Entitic vol] 82.6 fL Normal 80.0-94.0 [facility] Comment on above: Performed By: #### C BC #### [facility] [address] [place] [address] Dr. Elizabeth Valente MONO # 0.7 103/ul Normal 0.3-0.8 [facility] Comment on above: Performed By: #### C BC #### [facility] [address] [place] [address] Dr. Elizabeth Valente Monocytes/100 WBC (Bld) 6.4 % Normal 1.7-12.0 [facility] Comment on above: Performed By: #### C BC #### [facility] [address] [place] [address] Dr. Elizabeth Valente NEUT # 6.8 103/ul Critically high 1.4-6.5 [facility] Comment on above: Performed By: #### C BC #### [facility] [address] [place] [address] Dr. Elizabeth Valente Neutrophils/100 WBC (Bld) 63.1 % Normal 43.0-75.0 [facility] Comment on above: Performed By: #### C BC #### [facility] [address] [address] [address] Elizabeth Valente Platelet mean volume (Bld) [Entitic vol] 9.8 fL Normal 9.5-13.5 [facility] Comment on above: Performed By: #### C BC #### [facility] [address] [place] [address] Dr. Elizabeth Valente PLT 261 103/ul Normal 150-450 [facility] Comment on above: Performed By: #### C BC #### [facility] [address] [place] [address] Dr. Elizabeth Valente RBC 5.40 106/ul Normal 4.70-6.10 [facility] Comment on above: Performed By: #### C BC #### [facility] [address] [place] [address] Dr. Elizabeth Valente WBC 10.8 103/ul Normal 4.0-11.0 [facility] Comment on above: Performed By: #### C BC #### [facility] [address] [place] [address] Dr. Elizabeth Valente CPKon 05-16-2021 CK [Catalytic activity/Vol] 47 U/L Critically low 55-170 [facility] Comment on above: Performed By: #### H STROPN #### [facility] [address] [place] [address] Dr. Elizabeth Valente PROF 14(COMP METB)on 022 Albumin [Mass/Vol] 4.2 g/dL Normal 3.5-5.0 [facility] Comment on above: Performed By: #### C ELVIS GranadosTRJENNIE, CMP #### [facility] [address] [place] [address] Dr. Elizabeth Valente Albumin/Globulin [Mass ratio] 1.2 {ratio} Normal [facility] Comment on above: Performed By: #### C Rboerta HSTROPN, CMP #### [facility] [address] [place] [address] Dr. Elizabeth Valente ALP [Catalytic activity/Vol] 130 U/L Critically high 38-126 [facility] Comment on above: Performed By: #### ELVIS GarciaTRJENNIE, CMP #### [facility] [address] [place] [address] Dr. Elizabeth Valente ALT [Catalytic activity/Vol] 21 U/L Normal 21-72 [facility] Comment on above: Performed By: #### Renu Granados HSTRJENNIE, CMP #### [facility] [address] [place] [address] Dr. Elizabeth Valente Anion gap [Moles/Vol] 9.1 mmol/L Normal [facility] Comment on above: Performed By: #### Renu Granados HSTRJENNIE, CMP #### [facility] [address] [place] [address] Dr. Elizabeth Valente AST [Catalytic activity/Vol] 9 U/L Critically low 17-59 [facility] Comment on above: Performed By: #### Renu Granados HSTRJENNIE, CMP #### [facility] [address] [place] [address] Dr. Elizabeth Valente Bilirubin [Mass/Vol] 0.5 mg/dL Normal 0.2-1.3 [facility] Comment on above: Performed By: #### Renu Granados HSTRJENNIE, CMP #### [facility] [address] [place] [address] Dr. Elizabeth Valente Calcium [Mass/Vol] 9.1 mg/dL Normal 8.4-10.2 [facility] Comment on above: Performed By: #### Renu Granados HSTRJENNIE, CMP #### [facility] [address] [place] [address] Dr. Elizabeth Valente Chloride [Moles/Vol] 105 mmol/L Normal 98-107 [facility] Comment on above: Performed By: #### Renu Granados HSTRJENNIE, CMP #### [facility] [address] [place] [address] Dr. Elizabeth Valente CO2 [Moles/Vol] 30.5 mmol/L Critically high 22.0-30.0 [facility] Comment on above: Performed By: #### ELVIS GarciaTROPN, CMP #### [facility] [address] [address] [address] Elizabeth Valente Creatinine [Mass/Vol] 1.06 mg/dL Normal 0.66-1.25 [facility] Comment on above: Performed By: #### C K, HSTROPN, CMP #### [facility] [address] [address] [address] Elizabeth Valente EGFR-AF CONGOLESE >60 Normal >=[address] [facility] Comment on above: Performed By: #### C K, HSTROPN, CMP #### [facility] [address] [place] [address] Dr. Elizabeth Valente EGFR-NON AF CONGOLESE >60 Normal >=60 [facility] Comment on above: Performed By: #### C K, HSTROPN, CMP #### [facility] [address] [place] [address] Dr. Elizabeth Valente Globulin (S) [Mass/Vol] 3.5 g/dL Normal [facility] Comment on above: Performed By: #### C K, HSTROPN, CMP #### [facility] [address] [place] [address] Dr. Elizabeth Valente Glucose [Mass/Vol] 131 mg/dL Critically high 74-106 [facility] Comment on above: Performed By: #### C K, HSTROPN, CMP #### [facility] [address] [address] [address] Elizabeth Valente Potassium [Moles/Vol] 3.6 mmol/L Normal 3.4-5.0 [facility] Comment on above: Performed By: #### C K, HSTROPN, CMP #### [facility] [address] [place] [address] Dr. Elizabeth Valente Protein [Mass/Vol] 7.7 g/dL Normal 6.1-8.2 [facility] Comment on above: Performed By: #### C K, HSTROPN, CMP #### [facility] [address] [place] [address] Dr. Elizabeth Valente Sodium [Moles/Vol] 141 mmol/L Normal 137-145 [facility] Comment on above: Performed By: #### JOSHUA Garcia CMP #### [facility] [address] [place] [address] Dr. Elizabeth Valente Urea nitrogen [Mass/Vol] 15.0 mg/dL Normal 6.4-19.3 [facility] Comment on above: Performed By: #### JOSHUA Garcia, CMP #### [facility] [address] [place] [address] Dr. Elizabeth Valente Urea nitrogen/Creatinine [Mass ratio] 14.2 mg/mg Normal [facility] Comment on above: Performed By: #### JOSHUA Garcia CMP #### [facility] [address] [place] [address] Dr. Elizabeth Valente Physician Referralon 022 Physician Referral [id number] Normal [facility] TROPONIN, HIGH SENSITIVITYon 05-16-2021 HSTROP 5.2 pg/mL Normal 4.0-42.2 [facility] Comment on above: Result Comment: CUT- OFF POINTS HAVE BEEN ESTABLISHED BASED ON THE FOURTH UNIVERSAL DEFINITIONS OF MYOCARDIAL INFARCTION. THE UPPER REFERENCE LIMIT (URL) OF TROPONIN, DEFINED THE 99TH PERCENTILE OF cTnI DISTRIBUTION IN A REFERENCE POPULATION, HAS BEEN CONFIRMED THE DECISION THRESHOLD FOR NM DIAGNOSIS. Performed By: #### Atul STROPN #### [facility] [address] [place] [address] Dr. Elizabeth Valente CARDIAC ALEX ADMITon 022 CK [Catalytic activity/Vol] 341 U/L Critically high 55-170 [facility] Comment on above: Result Comment: Test Repeated. Critical Value Verified Performed By: #### KEYUR Sears MP #### [facility] [address] [place] [address] Dr. Elizabeth Valente CK.MB [Mass/Vol] 1.81 ng/mL Normal <=2.[address] [facility] Comment on above: Performed By: #### KEYUR Sears MP #### [facility] [address] [place] [address] Dr. Elizabeth Valente HSTROP 6.5 pg/mL Normal 4.0-42.2 [facility] Comment on above: Result Comment: CUT- OFF POINTS HAVE BEEN ESTABLISHED BASED ON THE FOURTH UNIVERSAL DEFINITIONS OF MYOCARDIAL INFARCTION. THE UPPER REFERENCE LIMIT (URL) OF TROPONIN, DEFINED THE 99TH PERCENTILE OF cTnI DISTRIBUTION IN A REFERENCE POPULATION, HAS BEEN CONFIRMED THE DECISION THRESHOLD FOR NM DIAGNOSIS. Performed By: #### C LIZZ, CHANDLERDM #### [facility] [address] [place] [address] Dr. Elizabeth Valente LAUREN 78.0 ng/mL Normal <=121.0 [facility] Comment on above: Performed By: #### C LIZZ, CMADM #### [facility] [address] [place] [address] Dr. Elizabeth Valente CBC AUTO DIFFon 05-11-2021 BASO # 0.0 103/ul Normal 0.0-0.1 [facility] Comment on above: Performed By: #### H STROPN #### [facility] [address] [place] [address] Dr. Elizabeth Valente Basophils/100 WBC (Bld) 0.4 % Normal 0.2-2.0 [facility] Comment on above: Performed By: #### H STROPN #### [facility] [address] [place] [address] Dr. Elizabeth Valente EO # 0.2 103/ul Normal 0.0-0.7 [facility] Comment on above: Performed By: #### H STROPN #### [facility] [address] [place] [address] Dr. Elizabeth Valente Eosinophils/100 WBC (Bld) 2.3 % Normal 0.9-7.0 [facility] Comment on above: Performed By: #### H STROPN #### [facility] [address] [place] [address] Dr. Elizabeth Valente Erythrocyte distribution width (RBC) [Ratio] 12.3 % Normal 11.0-15.0 [facility] Comment on above: Performed By: #### H STROPN #### [facility] [address] [address] [address] Elizabeth Valente Hematocrit (Bld) [Volume fraction] 42.9 % Normal 42.0-54.0 [facility] Comment on above: Performed By: #### H STROPN #### [facility] [address] [address] [address] Elizabeth Valente Hemoglobin (Bld) [Mass/Vol] 14.5 g/dL Normal 14.0-18.0 [facility] Comment on above: Performed By: #### H STROPN #### [facility] [address] [address] [address] Elizabeth Valente IG # 0.02 10e3/ul Normal 0.00-0.03 [facility] Comment on above: Performed By: #### H STROPN #### [facility] [address] [place] [address] Dr. Elizabeth Valente IG % 0.3 % Normal 0.0-0.5 [facility] Comment on above: Performed By: #### H STROPN #### [facility] [address] [place] [address] Dr. Elizabeth Valente LYMPH # 1.8 103/ul Normal 1.2-3.8 [facility] Comment on above: Performed By: #### H STROPN #### [facility] [address] [place] [address] Dr. Elizabeth Valente Lymphocytes/100 WBC (Bld) 27.0 % Normal 20.5-60.0 [facility] Comment on above: Performed By: #### H STROPN #### [facility] [address] [place] [address] Dr. Elizabeth Valente MANUAL DIFF REQ NO Normal [facility] Comment on above: Performed By: #### H STROPN #### [facility] [address] [place] [address] Dr. Elizabeth Valente MCH (RBC) [Entitic mass] 28.6 pg Normal 25.9-34.0 [facility] Comment on above: Performed By: #### H STROPN #### [facility] [address] [address] [address] Elizabeth Valente MCHC (RBC) [Mass/Vol] 33.8 g/dL Normal 29.9-35.2 [facility] Comment on above: Performed By: #### H STROPN #### [facility] [address] [place] [address] Dr. Elizabeth Valente MCV (RBC) [Entitic vol] 84.6 fL Normal 80.0-94.0 [facility] Comment on above: Performed By: #### H STROPN #### [facility] [address] [address] [address] Elizabeth Valente MONO # 0.8 103/ul Normal 0.3-0.8 [facility] Comment on above: Performed By: #### H STROPN #### [facility] [address] [place] [address] Dr. Elizabeth Valente Monocytes/100 WBC (Bld) 11.7 % Normal 1.7-12.0 [facility] Comment on above: Performed By: #### H STROPN #### [facility] [address] [place] [address] Dr. Elizabeth Valente NEUT # 4.0 103/ul Normal 1.4-6.5 [facility] Comment on above: Performed By: #### H STROPN #### [facility] [address] [place] [address] Dr. Elizabeth Valente Neutrophils/100 WBC (Bld) 58.3 % Normal 43.0-75.0 [facility] Comment on above: Performed By: #### H STROPN #### [facility] [address] [place] [address] Dr. Elizabeth Valente Platelet mean volume (Bld) [Entitic vol] 10.4 fL Normal 9.5-13.5 [facility] Comment on above: Performed By: #### H STROPN #### [facility] [address] [place] [address] Dr. Elizabeth Valente PLT 227 103/ul Normal 150-450 [facility] Comment on above: Performed By: #### H STROPN #### [facility] [address] [place], [place] [address] Dr. Elizabeth Valente RBC 5.07 106/ul Normal 4.70-6.10 [facility] Comment on above: Performed By: #### H STROPN #### [facility] [address] [place], [place] [address] Dr. Elizabeth Valente WBC 6.8 103/ul Normal 4.0-11.0 [facility] Comment on above: Performed By: #### H STROPN #### [facility] [address] [place], [place] [address] Dr. Elizabeth Valente CTA CHEST WO W CONon 022 CTA CHEST WO W CON EXAMINATION: CTA [facility] [facility] WO W CON HISTORY: CHEST PAIN, UNSPECIFIED sternal pain possible injury to sternum. COMPARISON: None. TECHNIQUE: CT angiography of the pulmonary arteries following the administration of 100 mL Omnipaque 350 intravenous contrast. Coronal and sagittal MIP (maximum intensity projection) images were performed. 3-D reconstruction. Dose reduction techniques were achieved by using automated exposure control and/or adjustment of mA and/or kV according to patient size and/or use of iterative reconstruction technique. FINDINGS: No evidence for acute pulmonary embolism, thoracic aortic aneurysm, or aortic dissection. Cardiac mediastinum unremarkable. Central airway patent. No lung consolidation, large effusions, pneumothorax, or suspicious groundglass lung infiltrates. No acute bony abnormality. No acute fracture of the visualized bony structures. Visualized portions upper abdomen unremarkable. IMPRESSION: No CT evidence for acute chest abnormality. No acute displaced fracture of the visualized bony structures. Electronically authenticated by: CARYN FRANKLIN Date: 2021-05-11 01:59 Normal [facility] Covid-19 PCR (CVDTBH)on SARS-CoV-2 (COVID-19) RNA IKE+probe Ql (Unsp spec) Detected Critically abnormal NOT DETECTED [facility] Comment on above: Result Comment: This test is not yet approved or cleared by the [place] FDA. When there are no FDA-approved or cleared tests available, and other criteria are met, FDA can make tests available under an emergency access mechanism called an Emergency Use Authorization (EUA). The EUA for this test is supported by the General Internist And Physician Leader of Health and Human Service's (HHS's) declaration that circumstances exist to justify the emergency use of in vitro diagnostics for the detection and/or diagnosis of the virus that causes COVID-19. This EUA will remain in effect (meaning this test can be used) for the duration of the COVID-19 declaration justifying emergency of IVDs, unless it is terminated or revoked by FDA (after which the test may no longer be used). Performed By: #### [facility] #### [facility] [address] [place] [address] Dr. Elizabeth Valente PROF 14(COMP METB)on 022 Albumin [Mass/Vol] 4.1 g/dL Normal 3.5-5.0 [facility] Comment on above: Performed By: #### C KEYUR ZAMUDIO #### [facility] [address] [place] [address] Dr. Elizabeth Valente Albumin/Globulin [Mass ratio] 1.2 {ratio} Normal [facility] Comment on above: Performed By: #### C KEYUR ZAMUDIO #### [facility] [address] [place] [address] Dr. Elizabeth Valente ALP [Catalytic activity/Vol] 133 U/L Critically high 38-126 [facility] Comment on above: Performed By: #### C KEYUR ZAMUDIO #### [facility] [address] [place] [address] Dr. Elizabeth Valente ALT [Catalytic activity/Vol] 20 U/L Critically low 21-72 [facility] Comment on above: Performed By: #### C CHANDLER ZAMUDIODM #### [facility] [address] [place] [address] Dr. Elizabeth Valente Anion gap [Moles/Vol] 10.8 mmol/L Normal [facility] Comment on above: Performed By: #### C CHANDLER ZAMUDIODM #### [facility] [address] [place] [address] Dr. Elizabeth Valente AST [Catalytic activity/Vol] 23 U/L Normal 17-59 [facility] Comment on above: Performed By: #### C KEYUR ZAMUDIO #### [facility] [address] [place] [address] Dr. Elizabeth Valente Bilirubin [Mass/Vol] 0.5 mg/dL Normal 0.2-1.3 [facility] Comment on above: Performed By: #### C LIZZ, CMADM #### [facility] [address] [place] [address] Dr. Elizabeth Valente Calcium [Mass/Vol] 9.4 mg/dL Normal 8.4-10.2 [facility] Comment on above: Performed By: #### C LIZZ, CMADM #### [facility] [address] [address] [address] Elizabeth Valente Chloride [Moles/Vol] 108 mmol/L Critically high 98-107 [facility] Comment on above: Performed By: #### C LIZZ, CMADM #### [facility] [address] [place] [address] Dr. Elizabeth Valente CO2 [Moles/Vol] 28.8 mmol/L Normal 22.0-30.0 [facility] Comment on above: Performed By: #### C LIZZ, CMADM #### [facility] [address] [place] [address] Dr. Elizabeth Valente Creatinine [Mass/Vol] 1.11 mg/dL Normal 0.66-1.25 [facility] Comment on above: Performed By: #### C LIZZ, CHANDLERDM #### [facility] [address] [place] [address] Dr. Elizabeth Valente EGFR-AF CONGOLESE >60 Normal >=60 [facility] Comment on above: Performed By: #### C LIZZ, CMADM #### [facility] [address] [place] [address] Dr. Elizabeth Valente EGFR-NON AF CONGOLESE >60 Normal >=60 [facility] Comment on above: Performed By: #### C LIZZ, CMADM #### [facility] [address] [place] [address] Dr. Elizabeth Valente Globulin (S) [Mass/Vol] 3.4 g/dL Normal [facility] Comment on above: Performed By: #### C LIZZ, CHANDLERDM #### [facility] [address] [place] [address] Dr. Elizabeth Valente Glucose [Mass/Vol] 101 mg/dL Normal 74-106 [facility] Comment on above: Performed By: #### C LIZZ, CMADM #### [facility] [address] [place] [address] Dr. Elizabeth Valente Potassium [Moles/Vol] 3.6 mmol/L Normal 3.4-5.0 [facility] Comment on above: Performed By: #### C LIZZ, CMADM #### [facility] [address] [place] [address] Dr. Elizabeth Valente Protein [Mass/Vol] 7.5 g/dL Normal 6.1-8.2 [facility] Comment on above: Performed By: #### C LIZZ, CMADM #### [facility] [address] [place] [address] Dr. Elizabeth Valente Sodium [Moles/Vol] 144 mmol/L Normal 137-145 [facility] Comment on above: Performed By: #### C LIZZ, CMADM #### [facility] [address] [place] [address] Dr. Elizabeth Valente Urea nitrogen [Mass/Vol] 17.0 mg/dL Normal 6.4-19.3 [facility] Comment on above: Performed By: #### C LIZZ, CMADM #### [facility] [address] [place] [address] Dr. Elizabeth Valente Urea nitrogen/Creatinine [Mass ratio] 15.3 mg/mg Normal [facility] Comment on above: Performed By: #### C LIZZ, CMADM #### [facility] [address] [place] [address] Dr. Elizabeth Valente TROPONIN, HIGH SENSITIVITYon 05-11-2021 HSTROP 7.2 pg/mL Normal 4.0-42.2 [facility] Comment on above: Result Comment: CUT- OFF POINTS HAVE BEEN ESTABLISHED BASED ON THE FOURTH UNIVERSAL DEFINITIONS OF MYOCARDIAL INFARCTION. THE UPPER REFERENCE LIMIT (URL) OF TROPONIN, DEFINED THE 99TH PERCENTILE OF cTnI DISTRIBUTION IN A REFERENCE POPULATION, HAS BEEN CONFIRMED THE DECISION THRESHOLD FOR NM DIAGNOSIS. Performed By: #### H CHRISTIANAPN #### [facility] [address] [place] [address] Dr. Elizabeth Valente XR CHEST 1 Von 05-11-2021 XR CHEST 1 V EXAM: XR CHEST 1 V HISTORY: CHEST PAIN, UNSPECIFIED COMPARISON: None. TECHNIQUE: One view of the chest was obtained. FINDINGS: The cardiac silhouette is normal in size. The lungs are clear. There is no significant pneumothorax or pleural effusion. No acute osseous abnormality is seen. IMPRESSION: 1. No acute cardiopulmonary abnormality. Electronically authenticated by: Roberta MART Date: 2021-05-10 23:05 Normal [facility] XR STERNUM MIN 2 VIEWSon XR STERNUM MIN 2 VIEWS XR STERNUM MIN 2 VIEWS: HISTORY: CHEST PAIN, UNSPECIFIED. COMPARISON: Chest 05/10/2021. TECHNIQUE: 4 radiographic view(s) obtained. FINDINGS: There is no acute displaced sternal fracture. Visualized lung guan appear clear. Soft tissues appear unremarkable. IMPRESSION: No acute displaced sternal fracture. Electronically authenticated by: PRASANNA PITTMAN Date: 2021-05-11 00:40 Normal [facility] AMYLASEon 04-13-2021 Amylase [Catalytic activity/Vol] 42 U/L Normal 31-110 [facility] Comment on above: Performed By: #### H STROPN #### [facility] [address] [place] [address] Dr. Elizabeth Valente CBC AUTO DIFFon 04-13-2021 BASO # 0.0 103/ul Normal 0.0-0.1 [facility] Comment on above: Performed By: #### H STROPN #### [facility] [address] [place] [address] Dr. Elizabeth Valente Basophils/100 WBC (Bld) 0.7 % Normal 0.2-2.0 [facility] Comment on above: Performed By: #### H STROPN #### [facility] [address] [place] [address] Dr. Elizabeth Valente EO # 0.1 103/ul Normal 0.0-0.7 [facility] Comment on above: Performed By: #### H STROPN #### [facility] [address] [place] [address] Dr. Elizabeth Valente Eosinophils/100 WBC (Bld) 3.4 % Normal 0.9-7.0 [facility] Comment on above: Performed By: #### H STROPN #### [facility] [address] [place] [address] Dr. Elizabeth Valente Erythrocyte distribution width (RBC) [Ratio] 12.2 % Normal 11.0-15.0 [facility] Comment on above: Performed By: #### H STROPN #### [facility] [address] [place] [address] Dr. Elizabeth Valente Hematocrit (Bld) [Volume fraction] 47.8 % Normal 42.0-54.0 [facility] Comment on above: Performed By: #### H STROPN #### [facility] [address] [place] [address] Dr. Elizabeth Valente Hemoglobin (Bld) [Mass/Vol] 16.1 g/dL Normal 14.0-18.0 [facility] Comment on above: Performed By: #### H STROPN #### [facility] [address] [place] [address] Dr. Elizabeth Valente IG # 0.01 10e3/ul Normal 0.00-0.03 [facility] Comment on above: Performed By: #### H STROPN #### [facility] [address] [place] [address] Dr. Elizabeth Valente IG % 0.2 % Normal 0.0-0.5 [facility] Comment on above: Performed By: #### H STROPN #### [facility] [address] [place] [address] Dr. Elizabeth Valente LYMPH # 1.3 103/ul Normal 1.2-3.8 [facility] Comment on above: Performed By: #### H STROPN #### [facility] [address] [place] [address] Dr. Elizabeth Valente Lymphocytes/100 WBC (Bld) 32.3 % Normal 20.5-60.0 [facility] Comment on above: Performed By: #### H STROPN #### [facility] [address] [place] [address] Dr. Elizabeth Valente MANUAL DIFF REQ NO Normal [facility] Comment on above: Performed By: #### H STROPN #### [facility] [address] [place] [address] Dr. Elizabeth Valente MCH (RBC) [Entitic mass] 28.5 pg Normal 25.9-34.0 [facility] Comment on above: Performed By: #### H STROPN #### [facility] [address] [place] [address] Dr. Elizabeth Valente MCHC (RBC) [Mass/Vol] 33.7 g/dL Normal 29.9-35.2 [facility] Comment on above: Performed By: #### H STROPN #### [facility] [address] [place] [address] Dr. Elizabeth Valente MCV (RBC) [Entitic vol] 84.6 fL Normal 76.3-90.1 [facility] Comment on above: Performed By: #### H STROPN #### [facility] [address] [place] [address] Dr. Elizabeth Valente MONO # 0.4 103/ul Normal 0.3-0.8 [facility] Comment on above: Performed By: #### H STROPN #### [facility] [address] [place] [address] Dr. Elizabeth Valente Monocytes/100 WBC (Bld) 9.9 % Normal 1.7-12.0 [facility] Comment on above: Performed By: #### H STROPN #### [facility] [address] [place] [address] Dr. Elizabeth Valente NEUT # 2.2 103/ul Normal 1.4-6.5 [facility] Comment on above: Performed By: #### H STROPN #### [facility] [address] [place] [address] Dr. Elizabeth Valente Neutrophils/100 WBC (Bld) 53.5 % Normal 43.0-75.0 [facility] Comment on above: Performed By: #### H STROPN #### [facility] [address] [place] [address] Dr. Elizabeth Valente Platelet mean volume (Bld) [Entitic vol] 10.3 fL Normal 9.5-13.5 [facility] Comment on above: Performed By: #### H STROPN #### [facility] [address] [place] [address] Dr. Elizabeth Valente PLT 241 103/ul Normal 150-450 [facility] Comment on above: Performed By: #### H STROPN #### [facility] [address] [place] [address] Dr. Elizabeth Valente RBC 5.65 106/ul Critically high 3.30-5.[address] [facility] Comment on above: Performed By: #### H STROPN #### [facility] [address] [place] [address] Dr. Elizabeth Valente WBC 4.1 103/ul Normal 4.0-11.0 [facility] Comment on above: Performed By: #### H STROPN #### [facility] [address] [place] [address] Dr. Elizabeth Valente LIPASEon 04-13-2021 Lipase [Catalytic activity/Vol] 52.0 U/L Normal 23.0-300.0 [facility] Comment on above: Performed By: #### H STROPN #### [facility] [address] [place] [address] Dr. Elizabeth Valente PROF 14(COMP METB)on 021 Albumin [Mass/Vol] 4.2 g/dL Normal 3.5-5.0 [facility] Comment on above: Performed By: #### H STROPN #### [facility] [address] [place] [address] Dr. Elizabeth Valente Albumin/Globulin [Mass ratio] 1.2 {ratio} Normal [facility] Comment on above: Performed By: #### H STROPN #### [facility] [address] [place] [address] Dr. Elizabeth Valente ALP [Catalytic activity/Vol] 141 U/L Normal 65-260 [facility] Comment on above: Performed By: #### H STROPN #### [facility] [address] [place] [address] Dr. Elizabeth Valente ALT [Catalytic activity/Vol] 27 U/L Normal 21-72 [facility] Comment on above: Performed By: #### H STROPN #### [facility] [address] [address] [address] Elizabeth Valente Anion gap [Moles/Vol] 12.4 mmol/L Normal [facility] Comment on above: Performed By: #### H STROPN #### [facility] [address] [address] [address] Elizabeth Valente AST [Catalytic activity/Vol] 14 U/L Critically low 17-59 [facility] Comment on above: Performed By: #### H STROPN #### [facility] [address] [place] [address] Dr. Elizabeth Valente Bilirubin [Mass/Vol] 0.9 mg/dL Normal 0.2-1.3 [facility] Comment on above: Performed By: #### H STROPN #### [facility] [address] [place] [address] Dr. Elizabeth Valente Calcium [Mass/Vol] 9.9 mg/dL Normal 8.4-10.2 [facility] Comment on above: Performed By: #### H STROPN #### [facility] [address] [place] [address] Dr. Elizabeth Valente Chloride [Moles/Vol] 103 mmol/L Normal 98-107 [facility] Comment on above: Performed By: #### H STROPN #### [facility] [address] [place] [address] Dr. Elizabeth Valente CO2 [Moles/Vol] 31.7 mmol/L Critically high 22.0-30.0 [facility] Comment on above: Performed By: #### H STROPN #### [facility] [address] [place] [address] Dr. Elizabeth Valente Creatinine [Mass/Vol] 1.20 mg/dL Normal 0.66-1.25 [facility] Comment on above: Performed By: #### H STROPN #### [facility] [address] [place] [address] Dr. Elizabeth Valente Globulin (S) [Mass/Vol] 3.6 g/dL Normal [facility] Comment on above: Performed By: #### H STROPN #### [facility] [address] [address] [address] Elizabeth Valente Glucose [Mass/Vol] 142 mg/dL Critically high 74-106 [facility] Comment on above: Performed By: #### H STROPN #### [facility] [address] [address] [address] Elizabeth Valente Potassium [Moles/Vol] 4.1 mmol/L Normal 3.4-5.0 [facility] Comment on above: Performed By: #### H STROPN #### [facility] [address] [place] [address] Dr. Elizabeth Valente Protein [Mass/Vol] 7.8 g/dL Normal 6.1-8.2 [facility] Comment on above: Performed By: #### H STROPN #### [facility] [address] [address] [address] Elizabeth Valente Sodium [Moles/Vol] 143 mmol/L Normal 137-145 [facility] Comment on above: Performed By: #### H STROPN #### [facility] [address] [place] [address] Dr. Elizabeth Valente Urea nitrogen [Mass/Vol] 20.0 mg/dL Critically high 6.4-19.3 [facility] Comment on above: Performed By: #### H STROPN #### [facility] [address] [place] [address] Dr. Elizabeth Valente Urea nitrogen/Creatinine [Mass ratio] 16.7 mg/mg Normal [facility] Comment on above: Performed By: #### H STROPN #### [facility] [address] [place] [address] Dr. Elizabeth Valente XR ABD FLAT_UPon 04-12-2021 XR ABD FLAT_UP EXAMINATION: XR ABD FLAT_UP HISTORY: Vomiting COMPARISON: No relevant comparison available. FINDINGS: BOWEL GAS PATTERN: Non-obstructed. Moderate stool in the rectum which measures 7.2 cm transversely FREE AIR: None. CALCIFICATIONS: None significant. BONES: No fracture or visible bone lesion. OTHER: Negative. IMPRESSION: Nonobstructive bowel gas pattern Moderate amount of stool in the rectum Electronically authenticated by: MIKA GUILLEN Date: 2021-04-12 11:19 Normal [facility] Vital Signs Date Time Vital Sign Value Performing Clinician Facility 11-01-2024 10:04-0400 Body height 182.9 cm Lynne Grimes [employer] Work Phone: [facility] 11-01-2024 10:04-0400 Body mass index (BMI) [Ratio] 25.63 kg/m2 Lynne Grimes [employer] Work Phone: [facility] 11-01-2024 10:04-0400 Body weight 85.73 kg Lynne Grimes [employer] Work Phone: [facility] 11-01-2024 10:04-0400 Diastolic blood pressure 64 mm[Hg] Lynne Grimes [employer] Work Phone: [facility] 11-01-2024 10:04-0400 Heart rate 84 /min Lynne Maciasvely [employer] Work Phone: [facility] 11-01-2024 10:04-0400 Respiratory rate 16 /min Lynne Gervais [employer] Work Phone: [facility] 11-01-2024 10:04-0400 SaO2% (BldA) [Mass fraction] 97 % Lynne Grimes [employer] Work Phone: [facility] 11-01-2024 10:04-0400 Systolic blood pressure 132 mm[Hg] Lynne Grimes [employer] Work Phone: [facility] 10-27-2024 12:53-0400 Body height 182.88 cm Frank Ramirez MD Work Phone: [facility] 10-27-2024 12:53-0400 Body mass index (BMI) [Ratio] 25 kg/m2 Frank Ramirez MD Work Phone: [facility] 10-27-2024 12:53-0400 Body weight 83.91 kg Frnak Ramirez MD Work Phone: [facility] 10-27-2024 12:53-0400 Diastolic blood pressure 67 mm[Hg] Frank Ramirez MD Work Phone: [facility] 10-27-2024 12:53-0400 Heart rate 65 /min Frank Ramirez MD Work Phone: [facility] 10-27-2024 12:53-0400 Systolic blood pressure 130 mm[Hg] Frank Ramirez MD Work Phone: [facility] 05-09-2024 10:27-0500 Body mass index (BMI) [Ratio] 21.58 kg/m2 Cecelia Waldron [employer] Work Phone: [facility] 05-09-2024 10:27-0500 Body weight 71.67 kg Cecelia Waldron [employer] Work Phone: [facility] 05-09-2024 10:27-0500 Diastolic blood pressure 68 mm[Hg] Cecelia Waldron [employer] Work Phone: [facility] 05-09-2024 10:27-0500 Heart rate 87 /min Cecelia Waldron [employer] Work Phone: [facility] 05-09-2024 10:27-0500 Systolic blood pressure 112 mm[Hg] Cecelia Waldron [employer] Work Phone: [facility] 2024 10:35-0500 Body temperature 98.4 [degF] Veronica Qiu MD Work Phone: [facility] 2024 10:35-0500 Body weight 71.22 kg Veronica Qiu MD Work Phone: [facility] 2024 10:35-0500 Diastolic blood pressure 76 mm[Hg] Veronica Qiu MD Work Phone: [facility] 2024 10:35-0500 Heart rate 84 /min Veronica Qiu MD Work Phone: [facility] 2024 10:35-0500 Respiratory rate 18 /min Veronica Qiu MD Work Phone: [facility] 2024 10:35-0500 Systolic blood pressure 124 mm[Hg] Veronica Qiu MD Work Phone: [facility] 03-30-2024 08:56-0500 Body height 182.2 cm Lynne Grimes [employer] Work Phone: [facility] 03-30-2024 08:56-0500 Body mass index (BMI) [Ratio] 22.12 kg/m2 Lynne Grimes [employer] Work Phone: [facility] 03-30-2024 08:56-0500 Body weight 73.48 kg Lynne Grimes [employer] Work Phone: [facility] 03-30-2024 08:56-0500 Diastolic blood pressure 70 mm[Hg] Lynne Grimes [employer] Work Phone: [facility] 03-30-2024 08:56-0500 Heart rate 100 /min Lynne Grimes [employer] Work Phone: [facility] 03-30-2024 08:56-0500 SaO2% (BldA) [Mass fraction] 98 % Lynne Grimes [employer] Work Phone: [facility] 03-30-2024 08:56-0500 Systolic blood pressure 126 mm[Hg] Lynne Grimes [employer] Work Phone: [facility] 03-28-2024 13:00-0500 Body mass index (BMI) [Ratio] 22.12 kg/m2 Cecelia Waldrno [employer] Work Phone: [facility] 03-28-2024 13:00-0500 Body weight 73.48 kg Cecelia Wladron [employer] Work Phone: [facility] 03-28-2024 13:00-0500 Diastolic blood pressure 82 mm[Hg] Cecelia Waldron [employer] Work Phone: [facility] 03-28-2024 13:00-0500 Heart rate 85 /min Cecelia Waldron [employer] Work Phone: [facility] 03-28-2024 13:00-0500 Systolic blood pressure 128 mm[Hg] Cecelia Waldron [employer] Work Phone: [facility] 12-21-2023 13:45-0400 Diastolic blood pressure 68 mm[Hg] MD Frank Ramirez Work Phone: [facility] 12-21-2023 13:45-0400 Heart rate 68 /min MD Frank Ramirez Work Phone: [facility] 12-21-2023 13:45-0400 Respiratory rate 20 /min MD Frank Ramirez Work Phone: [facility] 12-21-2023 13:45-0400 SaO2% (BldA) [Mass fraction] 99 % MD Frank Ramirez Work Phone: [facility] 12-21-2023 13:45-0400 Systolic blood pressure 104 mm[Hg] MD Frank Ramirez Work Phone: [facility] 12-21-2023 11:35-0400 Body height 182.88 cm MD Frank Ramirez Work Phone: [facility] 12-21-2023 11:35-0400 Body weight 74.84 kg MD Frank Ramirez Work Phone: [facility] 12-16-2023 11:40-0400 Body temperature 98.2 [degF] Frank Ramirez MD Work Phone: [facility] [employer] 12-16-2023 11:40-0400 Diastolic blood pressure 85 mm[Hg] Frank Ramirez MD Work Phone: [employer] 12-16-2023 11:40-0400 Heart rate 75 /min Frank Ramirez MD Work Phone: [employer] 12-16-2023 11:40-0400 Respiratory rate 14 /min Frank Ramirez MD Work Phone: [facility] [employer] 12-16-2023 11:40-0400 SaO2% (BldA) [Mass fraction] 99 % [facility] [employer] 12-16-2023 11:40-0400 Systolic blood pressure 131 mm[Hg] Frank Ramirez MD [facility] [employer] 02-16-2022 11:42-0400 Body height 180.3 cm Frank Ramirez MD [facility] 02-16-2022 11:42-0400 Body mass index (BMI) [Percentile] Per age and sex 49.41 % Frank Ramirez MD [facility] [employer] 02-16-2022 11:42-0400 Body mass index (BMI) [Ratio] 22.32 kg/m2 Frank Ramirez MD [facility] 02-16-2022 11:42-0400 Body temperature 98.49 [degF] Frank Ramirez MD [facility] 02-16-2022 11:42-0400 Body weight 72.58 kg Frank Ramirez MD [facility] 02-16-2022 11:42-0400 Diastolic blood pressure 82 mm[Hg] Frank Ramirez MD [facility] 02-16-2022 11:42-0400 Heart rate 95 /min Frank Ramirez MD [facility] 02-16-2022 11:42-0400 Respiratory rate 16 /min Frank Ramirez MD [facility] 02-16-2022 11:42-0400 SaO2% (BldA) [Mass fraction] 100 % Frank Ramirez MD [facility] 02-16-2022 11:42-0400 Systolic blood pressure 135 mm[Hg] Frank Ramirez MD Work Phone: [facility] Encounters Encounter Date Encounter Type Care Provider Facility Start: 11-01-2024 End: 11-01-2024 Bamboo flowsheet Lynne Grimes [employer] Work Phone: [facility] Start: 11-01-2024 End: 11-01-2024 Bamboo flowsheet Lynne Grimes [employer] Work Phone: [facility] Start: 11-01-2024 End: 11-01-2024 Office outpatient visit 25 minutes Lynne Grimes [employer] Work Phone: [facility] Comment on above: Acute pain of both k neabhilash (Primary Dx) Start: 10-27-2024 End: 10-27-2024 ambulatory Frank Ramirez MD Work Phone: [facility] Work Phone: Start: 10-27-2024 End: 10-27-2024 Patient encounter procedure [facility] Work Phone: Start: 06-05-2024 End: 06-08-2024 Refill Veronica Qiu MD Work Phone: Internal Medicine Comment on above: Med Change Request Start: 05-23-2024 End: 05-23-2024 ambulatory VERONICA QIU Facility:[facility] Start: 05-12-2024 End: 05-16-2024 Telephone encounter Veronica (Umair) Sourav [facility] [place] Comment on above: Patient Question Start: 05-11-2024 End: 05-11-2024 Telephone encounter Veronica Qiu MD Work Phone: Internal Medicine Start: 05-09-2024 End: 05-09-2024 Bamboo flowsheet Cecelia Waldron [employer] Work Phone: [facility] Start: 05-09-2024 End: 05-09-2024 Bamboo flowsheet Cecelia Waldron [employer] Work Phone: [facility] Start: 05-09-2024 End: 05-09-2024 Office outpatient visit 15 minutes Cecelia Waldron [employer] Work Phone: [facility] Comment on above: YANELY (generalized anx iety disorder) ([facility]/HCC) Start: 05-09-2024 End: 05-09-2024 ambulatory CECELIA WALDRON Not Available Start: 2024 End: 2024 Patient encounter procedure Veronica Qiu MD Work Phone: Internal Medicine [place] Comment on above: Recurrent vomiting ( Primary Dx); Gastroesophageal reflux disease, unspecified whether esophagitis present; Anxiety state; Hypercalcemia; Weight loss; Elevated bilirubin Start: 2024 End: 05-02-2024 Telephone encounter Veronica Qiu MD Work Phone: [facility] [place] Start: 2024 End: 2024 ambulatory VERONICA QIU Facility:[facility] Start: 04-07-2024 End: 04-07-2024 ambulatory [facility] Not Available Start: 03-30-2024 End: 03-30-2024 Bamboo flowsheet Lynne Grimes [employer] Work Phone: [facility] Start: 03-30-2024 End: 03-30-2024 Bamboo flowsheet Lynne Grimes [employer] Work Phone: [facility] Start: 03-30-2024 End: 03-30-2024 [facility] Start: 03-30-2024 End: 03-30-2024 Office outpatient visit 25 minutes Lynne Grimes [employer] Work Phone: [facility] Comment on above: YANELY (generalized anx iety disorder) ([facility]/HCC) (Primary Dx); Bilious vomiting with nausea Start: 03-30-2024 End: 03-30-2024 ambulatory LYNNE GRIMES Not Available Start: 03-28-2024 End: 03-28-2024 Office outpatient new 45 minutes Cecelia Waldron [employer] Work Phone: [facility] Comment on above: YANELY (generalized anx iety disorder) ([facility]) Start: 03-28-2024 End: 03-28-2024 ambulatory CECELIA WALDRON Not Available Start: 12-21-2023 Non-patient / Non-visit MD Frank Ramirez Work Phone: [facility] Work Phone: Start: 12-21-2023 End: 12-21-2023 Admission to same day surgery center MD Frank Ramirez Work Phone: [facility] Work Phone: Start: 12-21-2023 End: 12-21-2023 ambulatory MD Frank Ramirez Work Phone: [facility] Work Phone: Start: 12-16-2023 End: 12-16-2023 Emergency department patient visit FRANK RAMIREZ [facility] Start: 12-16-2023 End: 12-16-2023 Subsequent hospital visit by physician Frank Ramirez MD Work Phone: [facility] Comment on above: Vomiting without dav sea, unspecified vomiting type (Primary Dx) Start: 11-17-2023 End: 11-17-2023 ambulatory CODI RODRIGUEZ Not Available Start: 02-16-2022 End: 02-16-2022 Subsequent hospital visit by physician Frank Ramirez MD Work Phone: [facility] Comment on above: Common cold (Primary Dx) Start: 05-16-2021 End: 05-17-[address] FRANK RAMIREZ Facility:[facility] Start: 05-11-2021 End: 05-11-[address] ALEX AGUILERA Facility:[facility] Start: 04-13-2021 End: 04-14-[address] FRANK RAMIREZ Facility:[facility] Start: 04-12-2021 End: 04-13-[address] FRANK RAMIREZ Facility:[facility] Procedures Date Procedure Procedure Detail Performing Clinician Start: 04-07-2024 End: 04-07-2024 Psychotherapy w/patient 30 minutes YANELY (generalized anxiety disorder) ([facility]/HCC) Francisco Zepeda [facility] Comment on above: YANELY (generalized anxiety disorder) ([facility]/ HCC) Start: 03-30-2024 End: 03-30-2024 Psychiatric diagnostic evaluation YANELY (generalized anxiety disorder) ([facility]) Francisco Zepeda [facility] Comment on above: YANELY (generalized anxiety disorder) ([facility]/ HCC) Start: 12-21-2023 Esophagogastroduodenoscopy MD Frank Ramirez Work Phone: Start: 11-17-2023 End: 11-17-2023 Laboratory test result abnormal Abnormal laboratory test Cecelia Waldron NP Work Phone: Plan of Treatment Date Care Activity Detail Author Start: 11-15-2025 DTaP/Tdap/Td vaccine (5 - Td or Tdap) DTaP/Tdap/Td vaccine (5 - Td or Tdap) [facility] Start: 11-15-2025 Urine microalbumin profile DTaP,Tdap,Td Vaccine (7 - Td or Tdap) [facility] Start: 01-02-2025 Influenza vaccination Influenza Vacc ine (#1) [facility] Start: 11-01-2024 End: 11-01-2025 XR Knee - bilateral 3 Views XR knee 3 views bilateral Imaging Routine Acute pain of both knees Expected: 11/01/2024, Expires: 11/01/2025 [facility] Work Phone: Comment on above: Expected: 11/01/2024 , Expires: 11/01/2025 Start: 11-01-2024 End: 11-01-2024 Patient encounter procedure 11/01/2024 10:00 AM EDT Office Visit [facility] [address] [facility] [address] [place] [id number] Lynne Grimes [employer]TER [address] [facility] [address] [place], [place] [id number] Arrived [facility] Comment on above: Arrived Start: 05-23-2024 End: 05-23-2024 ambulatory 05/23/2024 12:00 PM [facility] Internal Medicine [id number] [place] [address] [place] [address] [facility] [address] [place] [address] Virtual visit 1 month f/u Internal Medicine Comment on above: Virtual visit 1 saadia h f/u Start: 05-19-2024 End: 05-19-2024 Patient encounter procedure 05/19/2024 2:30 PM EST Appointment MRI [facility] [address] [place] [address] MRI brain w/wo contrast. patient will sign Financial Responsability form MRI [facility] Comment on above: MRI brain w/wo contr ast. patient will sign Financial Responsability form Start: 05-09-2024 End: 05-09-2024 Patient encounter procedure [facility] Comment on above: YANELY (generalized anx iety disorder) ([facility]) Start: 04-07-2024 End: 04-07-2024 Telemedicine consultation with patient 04/07/2024 2:00 PM EST Telemedicine [facility] [address] [place] [address] Francisco Zepeda [facility] Start: 03-30-2024 End: 03-30-2024 Social Work [facility] Comment on above: Arrived Start: 01-03-2024 Covid-19 Vaccine ( season) Covid-19 Vaccine ( season) [facility] Start: 01-03-2024 Influenza vaccination Influenza Vacc ine (#1) [facility] Start: 12-21-2023 [facility] Start: 12-03-2023 Influenza vaccination Flu vaccine (# 1) [facility] Start: 01-02-2023 COVID-19 Vaccine ( season) COVID-19 Vaccine ( season) [facility] Start: 2022 DTaP/Tdap/Td vaccine (1 - Tdap) DTaP/Tdap/Td vaccine (1 - Tdap) [facility] Start: 12-02-2021 Influenza vaccination Flu vaccine (# 1) [facility] Start: 2021 Depression Screening Depression Scre peng [facility] Start: 2021 Hepatitis C screening Hepatitis C Sc rick [facility] Start: 2021 HIV screening HIV Screening [facility] Start: 01-21-2020 Meningococcal B Vacc ine: Consider Based On Risk (2 of 2 - Risk Trumenba 2-dose series) Meningococcal B Vaccine: Consider Based On Risk (2 of 2 - Risk Trumenba 2-dose series) [facility] Start: 2017 Peds To Adult Transi tion Annual Assessment Peds To Adult Transition Annual Assessment [facility] Start: 2015 Peds To Adult Transi tion Initial Discussion Peds To Adult Transition Initial Discussion [facility] Start: 2003 COVID-19 Vaccine (#1) COVID-19 Vacci ne (#1) [facility] Patient Education Know your [facility] Work Phone: UA DIP, URINE (POC) UA DIP, URIN E (POC) Lab Routine Recurrent vomiting Ordered: 2024 [facility] Work Phone: Comment on above: Ordered: 2024 Immunizations Immunization Date Immunization Notes Care Provider Collin castro 01-03-2020 hepatitis A vaccine, unspecified formulation Lynne Grimes [employer] Work Phone: [facility] 01-03-2020 Human Papillomavirus 9-valent vaccine Lynne Grimes [employer] Work Phone: [facility] 09-20-2019 Human Papillomavirus 9-valent vaccine Lynne Grimes [employer] Work Phone: [facility] 09-20-2019 meningococcal B vacc ine, fully recombinant Lynne Grimes [employer] Work Phone: [facility] 06-23-2019 hepatitis A vaccine, unspecified formulation Lynne Grimes [employer] Work Phone: [facility] 06-23-2019 Human Papillomavirus 9-valent vaccine Lynne Grimes [employer] Work Phone: [facility] 06-23-2019 meningococcal B vacc ine, fully recombinant Lynne Grimes [employer] Work Phone: [facility] 06-23-2019 meningococcal polysaccharide (groups A, C, Y and W-135) diphtheria toxoid conjugate vaccine (MCV4P) Lynne Grimes [employer] Work Phone: [facility] 11-26-2015 meningococcal polysaccharide (groups A, C, Y and W-135) diphtheria toxoid conjugate vaccine (MCV4P) Lynne Grimes [employer] Work Phone: [facility] 11-16-2015 tetanus toxoid, redu mariana diphtheria toxoid, and acellular pertussis vaccine, adsorbed Lynneluis m Grimes [employer]TER Work Phone: [facility] 09-21-2008 diphtheria, tetanus toxoids and acellular pertussis vaccine, unspecified formulation Lynneluis m Grimes [employer] Work Phone: [facility] 09-21-2008 measles, mumps and r ubella virus vaccine Lynne Grimes CLAM [employer]TER Work Phone: [facility] 09-21-2008 poliovirus vaccine, inactivated Lynneluis m Grimes CL[employer]TER Work Phone: [facility] 09-21-2008 varicella virus vaccine Thomas asencio Sydney CL[employer] S[employer]TER Work Phone: [facility] 10-15-2004 measles, mumps and r ubella virus vaccine Lynne Sydney CL[employer]TER Work Phone: [facility] 09-12-2004 diphtheria, tetanus toxoids and acellular pertussis vaccine, unspecified formulation Lynne Grimes CLAM S[employer]TER Work Phone: [facility] 09-12-2004 haemophilus influenz ae type b vaccine, conjugate unspecified formulation Lynneluis m Grimes CLAM S[employer]TER Work Phone: [facility] 09-12-2004 measles, mumps and r ubella virus vaccine Lynne Grimes CL[employer]TER Work Phone: [facility] 08-28-2004 varicella virus vaccine Thomas asencio Sydney CLAM S[employer]TER Work Phone: [facility] 2003 DTaP-hepatitis B and poliovirus vaccine Lynne Grimes CL[employer] S[employer]TER Work Phone: [facility] 2003 pneumococcal conjuga te vaccine, 7 valent Lynneluis m Grimes CLAM SORTER Work Phone: [facility] 2003 pneumococcal conjuga te vaccine, 7 valent Lynne Gervais CLAM S[employer]TER Work Phone: [facility] 2003 DTaP-hepatitis B and poliovirus vaccine Lynne Gervais CL[employer] S[employer]TER Work Phone: [facility] 2003 haemophilus influenz ae type b vaccine, conjugate unspecified formulation Lynne Sydney CL[employer] S[employer]TER Work Phone: [facility] 2003 DTaP-hepatitis B and poliovirus vaccine Lynne Sydney CL[employer]TER Work Phone: [facility] 2003 haemophilus influenz ae type b vaccine, conjugate unspecified formulation Lynne Sydney CL[employer]TER Work Phone: [facility] 2003 hepatitis B vaccine, pediatric or pediatric/adolescent dosage Lynneluis m Grimes CLAM SORTER Work Phone: [facility] Healthcare Payers Date Payer Category Payer Unknown [facility] PPO [id number] 2024- [phone] [id number] [place] [id number] PPO [id number] 2023 Self-pay 2023 [facility] [id number] 2023 Unknown [id number] 2022 Unknown [employer] [address] [id number] 2022-Present [address] [place] [address] [id number] 2003 Unknown [id number]. 93 2003 Unknown [id number]. 1259 2003 Unknown [id number]. 1259 2003 Unknown [id number]. 1259 2003 Unknown [id number] [id number]. 1259 2003 Unknown [id number] [id number]. 1259 2003 Unknown [id number] [id number]. 1259 1972 Unknown [id number] [id number]. 593 1972 Unknown [id number] [id number]. 593 1972 Unknown [id number] [id number]. 593 1972 Unknown [id number] [id number]. 593 1959 Unknown [id number] Unknown [id number]. 531 Social History Date Type Detail Facility Start: 02-16-2022 End: 03-28-2024 Tobacco smoking status MIIS Never smoked tobacco [facility] Phone: Start: 02-16-2022 End: 03-28-2024 Tobacco use and exposure Smokeless tobacco non-user [facility] Phone: Start: 02-16-2022 End: 11-01-2024 Alcohol intake Ex-drinker (finding) [facility] Phone: Start: 2003 Sex Assigned At Not on file B [employer] Phone: Start: 02-06-2022 End: 02-16-2022 Exposure to SARS-CoV-2 (event) Not sure [facility] Phone: Start: 2003 Sex Assigned At Male F [facility] Start: 03-28-2024 End: 03-30-2024 Alcoholic beverage intake Not Asked [facility] Start: 03-28-2024 End: 11-01-2024 History of Social function [facility] Start: 03-28-2024 End: 11-01-2024 Alcohol Use Disorder Identification Test - Consumption [AUDIT-C] [facility] How often to you hav e a drink containing alcohol? Monthly or less [facility] How many standard dr inks containing alcohol do you have on a typical day? 1 or 2 [facility] How often do you hav e 6 or more drinks on 1 occasion? Never [facility] Start: 03-28-2024 Education 21 [facility] Start: 03-28-2024 Alcohol Comment caffiene- none [facility] Has the [employer], [employer], oil, or water company threatened to shut off services in your home in past 12Mo No [facility] Do you belong to any clubs or organizations such as gnosticism groups, unions, fraternal or athletic groups, or school groups? Yes [facility] Are you now , , , , never or living with a partner? Never [facility] Adult Depression Screening Assessment 0 [facility] Do you feel stress - tense, restless, nervous, or anxious, or unable to sleep at night because your mind is troubled all the time - these days [OSQ] Only a little [facility] (I/We) worried wheth er (my/our) food would run out before (I/we) got money to buy more. Never true [facility] Sex Male (finding) [facility] NEGATED: Highlighted rowStart: NINF History of tobacco use Passive smoker [facility] Goals Date Patient Goal Desired Activity /State Functional Status Date Assessment Result Facility 11-01-2024 [facility] 2 item (PHQ-2) [Reported] [facility] Clinical Notes 02-16-2022 to 11-01-2024 Lynne Grimes, CLAM SORTER - 11/01/2024 10:00 AM EDTTelephone Encounter - Yadiel Pss, Ansley L - 05/16/2024 9:10 AM ESTTelephone Encounter - Yadiel Pss, Ansley L - 05/16/2024 9:10 AM ESTAttachments Note Date & Type Note Facility 11-01-2024 History of Present illness Narrative Images from the original note were not [...] mg in the evening. Take before meals. No current facility-administered medications on [...] follow-ups on file. documented in this encounter [facility] 05-16-2024 Telephone encounter Note Called patient left vm, advised to call back if needing to reschedule MRI sooner. The referral looks like it has been authorized and patient should be able to move MRI up, please assist thanks [facility] Work Phone: 05-16-2024 Miscellaneous Notes Called patient left vm, advised to call back if needing to reschedule MRI sooner. The referral looks like it has been authorized and patient should be able to move MRI up, please assist thanks Images from the original note were not included. Veronica Qiu MD Ct (1-3) Nurse [place]1 hour ago (2:58 PM) I don't understand the message and the PSR who took the message has not answered yet. Does he simply want a sooner appointment? Let me know so I can add on. MD Sourav Morris Irene L, MD Mata, Ariela3 hours ago (12:35 PM) which order needs changed to stat ?? Veroinca Qiu MD Believe this is regards to MRI order. Please advise. Thanks. Please advise Barb Rivera MA Emerson is calling Veronica Qiu MD today to inform that his insurance requires a 10 business day scheduling period. Patient is going back to school on 05/24. Asking is Dr. Qiu can change the order to STAT. An tentative appt was scheduled for 05/19 patient will need to sing a Financial Responsibility form Patient will also called his insurance today to tried to get a sooner response. Please advise Patient has been identified by name and birthdate. Person calling: self Call patient at: on cell [phone] (home) Was an appointment scheduled: No Closing statement: Results or non-symptom based questions: Thank you for calling [facility], your call will be returned within the next business day. Patricia Joaquin documented in this encounter [facility] 05-13-2024 Telephone encounter Note Images from the original note were not included. Veronica Qiu MD Ct (1-3) Nurse [place]1 hour ago (2:58 PM) I don't understand the message and the PSR who took the message has not answered yet. Does he simply want a sooner appointment? Let me know so I can add on. MD Sourav Morris Irene L, MD Mata, Ariela3 hours ago (12:35 PM) which order needs changed to stat ?? Veronica Qiu MD Believe this is regards to MRI order. Please advise. Thanks. [facility] 05-13-2024 Telephone encounter Note Please advise Barb Rivera MA [facility] 05-12-2024 Telephone encounter Note Emerson is calling Veronica Qiu MD today to inform that his insurance requires a 10 business day scheduling period. Patient is going back to school on 05/24. Asking is Dr. Qiu can change the order to STAT. An tentative appt was scheduled for 05/19 patient will need to sing a Financial Responsibility form Patient will also called his insurance today to tried to get a sooner response. Please advise Patient has been identified by name and birthdate. Person calling: self Call patient at: on cell [phone] (home) Was an appointment scheduled: No Closing statement: Results or non-symptom based questions: Thank you for calling [facility], your call will be returned within the next business day. Patricia Joaquin [facility] 05-12-2024 Telephone encounter Note Called patient left vm, advised per drs message, thanks [facility] Work Phone: 05-12-2024 Miscellaneous Notes Called patient left vm, advised per chapito message, thanks documented in this encounter [facility] 05-11-2024 Telephone encounter Note please pull PA for clinton and let me sign off on this May 11, 2024 Veronica Qiu MD [facility] 05-11-2024 Miscellaneous Notes please pull PA for abilijose and let me sign off on this May 11, 2024 Veronica Qiu MD documented in this encounter [facility] 05-09-2024 History of Present illness Narrative Images from the original note were not included. Emerson Taylor is a 19 y.o. male with a history of anxiety who presents for psychiatric medication follow-up. HPI: Patient was seen for initial intake on 03/28/24. At patient's last visit, he was started on Sertraline for anxiety. I did review his chart and saw that he went to his PCP 2 days after he saw me and received a prescription for Ativan. He reports that he stopped taking the Zoloft due to side effects of nausea and vomiting. He reports taking some of his Ativan but didn't really feel that it made a difference in his symptoms. He states that he didn't like how it could be addicting sot hat was another reason he stopped it. He did see his PCP on 04/28 who put in him on Wellbutrin. He reports being on this medication for about 3 days. He denies any side effects from this medication so far. He reports that he feels that his stomach issues are improving since being on Ciro break. He still has a vomiting episode every morning. SUBJECTIVE: PAST MEDICAL HISTORY: Past Medical History: Diagnosis Date Abnormal laboratory test 11/17/2023 Anxiety Severe acute respiratory syndrome coronavirus 2 (SARS-CoV-2) detected 11/17/2023 Slow transit constipation 11/17/2023 ALLERGIES: Allergies Allergen Reactions Azithromycin Rash and Swelling Was a baby and not sure about allergy Ceftriaxone Hives and Swelling Was a child and not sure of reaction SURGICAL HISTORY: No past surgical history on file. FAMILY HISTORY: No family history on file. SOCIAL HISTORY: Social History Tobacco Use Smoking status: Never Smokeless tobacco: Never Vaping Use Vaping status: Never Used Substance Use Topics Alcohol use: Not Currently Comment: caffiene- none Drug use: Never Depression: Not on file Patient Care Team: Frank Ramirez MD as PCP - General (Family Medicine) Cecelia Waldron NP as Nurse Practitioner (Behavioral Health) PSYCHIATRIC REVIEW OF SYMPTOMS AND MENTAL STATUS EXAM ROS: Patient denies fatigue, malaise, night sweats, weight loss, weight gain, cough, SOB, palpitations, chest pain, insomnia, dysphagia, abdominal pain, diarrhea, pruritus, rash, headache, dizziness, seizures, tremors, headache. Appearance Appearance: Casual dress, normal grooming and hygiene Behavior Cooperative, conversant, engaged, and with good eye contact. Speech Normal, clear, regular rate, rhythm and volume Affect full affect appropriate with mood Mood Anxious Thought Process Organized and Clear Thought Content: Denies suicidal and homicidal ideation. Perception: Denies visual, auditory, and tactile hallucinations. Denies derealization and depersonalization. Orientation Appropriate to age Memory/Concentration Short term intact and superintendent container terminal intact Insight/Judgement Fair OBJECTIVE: Visit Vitals BP 112/68 (BP Location: Right arm, Patient Position: Sitting) Pulse 87 Wt 158 lb BMI 21.58 kg/m Smoking Status Never BSA 1.9 m Lab results: 04/28/24 - CBC, BMP, LFTs, Lipase, Amylase, Magnesium (2.6), TSH (2.740), Sed rate, PTH, UDS positive for benzodiazepines ASSESSMENT AND PLAN: Impression: Patient reports improvement in anxiety since being on Ciro break. He stopped his Sertraline due to nausea/vomiting. Informed patient that this is a common side effect with many psychotropic medications and that typically resolves after a couple of weeks, but is reasonable to discontinue if he cannot continue. He has seen PCP twice since he has seen me, both times which resulted in changes in his mental health medications. Discussed my concerns for increased medical errors and his overall safety if more than one provider is adjusting meds. Encouraged him to either continue care with one provider for his mental health treatment to decrease any potential for errors. Informed patient that I would like to see him back again in 1 month if he decides to continue care with me. Patient verbalized understanding. OARRS report ran on 05/05/24 showed he got 90 tablets of Lorazepam 0.5 mg dispensed on 03/30/24. This was prescribed by his PCP, Lynne Grimes. UDS on 04/28/24 was positive for benzodiazepines. Controlled substance agreement signed on 03/28/24. Assessment/Plan Diagnoses and all orders for this visit: YANELY (generalized anxiety disorder) ([facility]) Treatment Plan/Recommendations: - Continue Wellbutrin XL 150 mg for anxiety. Patient aware of this being off-label use. - Continue counseling for additional mental health support, as well as long-term success with anxiety treatment. - RTC in 1 month. Discussed any medication changes and follow-up plan with patient. Encouraged patient to call office sooner if symptoms worsen or if any questions/concerns arise. Patient was seen Face to Face, Total time spent with patient was 20 minutes, which includes reviewing chart documents, previous notes/records, counseling and discussion with patient and/or coordination of care as described above. documented in this encounter [facility] 2024 Note HNO ID: [id number] Author: VERONICA QIU MD Service: ? Author Type: Physician Type: Progress Notes Filed: 05/12/2024 12:55 Note Text: Patient presents with: Nausea: Nausea/vomiting for a few months intermittent, had EGD done, on anxiety meds pt new to me see above In September and October felt well In November was [employer] for holiday with GF and went out to eat , felt anxious in restaurant and got up and vomited and unwell since then has lost 20 pounds Hx : GERD as a baby , hx of gagging and GI intolerance, used Tums regularly in the past in HS had improvement of symptoms with zofran and Reglan aslo switched to baseball from wrestling of late vomits and yet has an empty feeling when feels fine can eat everything after finals were done feels more relaxed has had head injuries in past related to football rarely uses etOH feels unwell with etOH uses ativan q am as per gi recc tried homeopathic approach to his overall health sensitive per genetic testing to red 40 usual weight = [address] Fuchs in [facility] plans to see him in 6 mo sees GI locally PAST MEDICAL HISTORY Diagnosis Date Anxiety state on Zoloft x 4 weeks as of 04/28/24 GERD (gastroesophageal reflux disease) from infancy PAST SURGICAL HISTORY Procedure Laterality Date REFERRAL DERMATOLOGY SURGERY skin lesion on buttocks 2010 and 2012 REMOVAL OF HYDROCELE Right 07/27/2005 and hernia FAMILY HISTORY Problem Relation Age of Onset other (htn) Father other (shoulder surg) Father Anxiety disorder Brother other (ty 2 diabetes vs pre diabetes) Maternal Grandmother other (diabetes ty 2) Paternal Grandfather IDDM and gr grandfather and uncle Current Outpatient Medications Medication Sig omeprazole (PRILOSEC) 40 mg capsule Take 40 mg by mouth two times a day. sertraline (ZOLOFT) 25 mg tablet Take 50 mg by mouth. LORazepam (ATIVAN) 0.5 mg Take 0.5 mg by mouth every 6 hours as needed. No current facility-administered medications for this visit. BP 124/76 (BP Site: Left Arm, BP Position: Sitting, BP Cuff Size: Regular Adult) Pulse 84 Temp 36.9 ?C (98.4 ?F) (Oral) Resp 18 Wt 71.2 kg (157 lb) O: PE Alert, cooperative, well-hydrated. Neck supple, no adenopathy. No carotid bruits bilaterally no jugular venous distention . Lungs are clear bilaterally . Heart sounds are of regular rate and rhythm without murmur. Ext- no peripheral edema bilaterally and +adaquate pulses at feet bilaterally . Abdomen: soft, nondistended, nontender, no hepatosplenomegaly or masses, no abdominal bruit IMPRESSIONS/PLANS; Gastroesophageal reflux disease, unspecified whether esophagitis present (primary encounter diagnosis) Anxiety state Recurrent vomiting Hypercalcemia Weight loss Elevated bilirubin in pt with lifelong GI issues and some on/ off stresses now on Current Outpatient Medications Medication Sig omeprazole (PRILOSEC) 40 mg capsule Take 40 mg by mouth two times a day. sertraline (ZOLOFT) 25 mg tablet Take 50 mg by mouth. LORazepam (ATIVAN) 0.5 mg Take 0.5 mg by mouth every 6 hours as needed. No current facility-administered medications for this visit. BP 124/76 (BP Site: Left Arm, BP Position: Sitting, BP Cuff Size: Regular Adult) Pulse 84 Temp 36.9 ?C (98.4 ?F) (Oral) Resp 18 Wt 71.2 kg (157 lb) O: PE Alert, cooperative, well-hydrated. Neck supple, no adenopathy. No carotid bruits bilaterally no jugular venous distention . Lungs are clear bilaterally . Heart sounds are of regular rate and rhythm without murmur. Ext- no peripheral edema bilaterally and +adaquate pulses at feet bilaterally . Abdomen: soft, nondistended, nontender, no hepatosplenomegaly or masses, no abdominal bruit External ears and canals clear bilaterally. TM's normal bilaterally. Nose normal without lesions or discharge; no mucosal swelling. Oropharynx normal. Neck supple without palpable adenopathy. conjuctiva: clear bilaterally IMPRESSIONS/PLANS: Gastroesophageal reflux disease, unspecified whether esophagitis present Anxiety state Recurrent vomiting (primary encounter diagnosis) Hypercalcemia Weight loss Elevated bilirubin in pt with 20 # weight loss seems mildly anxious unclear if he loves his chosen major/ how GPA is going neg eval thus far except for some paltry lab abnormalities rule out hyperthy, hyperparathy, check additional lfts ? Phillip's sw from Zoloft to abilify for weight gain and try Wellbutrin consider abilify consider [employer]UDENT [employer] COORDINATOR imaging although has no focal neuro issues no CENTENO recc sparing use ativan see orders virtual visit re eval with me in 3-4 w Veronica Qiu MD May 02, 2024 : spoke to patient symptoms = same , tolerating wellbutrin, less ativan use Last labs reviewed at length. Veronica Qiu MD [facility] 2024 History of Present illness Narrative Patient presents with: Nausea: Nausea/vomiting for a few months intermittent, had EGD done, on anxiety meds pt new to me see above In September and October felt well In November was [employer] for holiday with GF and went out to eat , felt anxious in restaurant and got up and vomited and unwell since then has lost 20 pounds Hx : GERD as a baby , hx of gagging and GI intolerance, used Tums regularly in the past in HS had improvement of symptoms with zofran and Reglan aslo switched to baseball from wrestling of late vomits and yet has an empty feeling when feels fine can eat everything after finals were done feels more relaxed rarely uses etOH feels unwell with etOH uses ativan q am as per gi recc tried homeopathic approach to his overall health sensitive per genetic testing to red 40 usual weight = [address] Fuchs in [facility] plans to see him in 6 mo sees GI locally PAST MEDICAL HISTORY Diagnosis Date Anxiety state on Zoloft x 4 weeks as of 04/28/24 GERD (gastroesophageal reflux disease) from infancy PAST SURGICAL HISTORY Procedure Laterality Date REFERRAL DERMATOLOGY SURGERY skin lesion on buttocks 2010 and 2012 REMOVAL OF HYDROCELE Right 07/27/2005 and hernia FAMILY HISTORY Problem Relation Age of Onset other (htn) Father other (shoulder surg) Father Anxiety disorder Brother other (ty 2 diabetes vs pre diabetes) Maternal Grandmother other (diabetes ty 2) Paternal Grandfather IDDM and gr grandfather and uncle Current Outpatient Medications Medication Sig omeprazole (PRILOSEC) 40 mg capsule Take 40 mg by mouth two times a day. sertraline (ZOLOFT) 25 mg tablet Take 50 mg by mouth. LORazepam (ATIVAN) 0.5 mg Take 0.5 mg by mouth every 6 hours as needed. No current facility-administered medications for this visit. BP 124/76 (BP Site: Left Arm, BP Position: Sitting, BP Cuff Size: Regular Adult) Pulse 84 Temp 36.9 C (98.4 F) (Oral) Resp 18 Wt 71.2 kg (157 lb) O: PE Alert, cooperative, well-hydrated. Neck supple, no adenopathy. No carotid bruits bilaterally no jugular venous distention . Lungs are clear bilaterally . Heart sounds are of regular rate and rhythm without murmur. Ext- no peripheral edema bilaterally and +adaquate pulses at feet bilaterally . Abdomen: soft, nondistended, nontender, no hepatosplenomegaly or masses, no abdominal bruit IMPRESSIONS/PLANS; Gastroesophageal reflux disease, unspecified whether esophagitis present (primary encounter diagnosis) Anxiety state Recurrent vomiting Hypercalcemia Weight loss Elevated bilirubin in pt with lifelong GI issues and some on/ off stresses now on Current Outpatient Medications Medication Sig omeprazole (PRILOSEC) 40 mg capsule Take 40 mg by mouth two times a day. sertraline (ZOLOFT) 25 mg tablet Take 50 mg by mouth. LORazepam (ATIVAN) 0.5 mg Take 0.5 mg by mouth every 6 hours as needed. No current facility-administered medications for this visit. BP 124/76 (BP Site: Left Arm, BP Position: Sitting, BP Cuff Size: Regular Adult) Pulse 84 Temp 36.9 C (98.4 F) (Oral) Resp 18 Wt 71.2 kg (157 lb) O: PE Alert, cooperative, well-hydrated. Neck supple, no adenopathy. No carotid bruits bilaterally no jugular venous distention . Lungs are clear bilaterally . Heart sounds are of regular rate and rhythm without murmur. Ext- no peripheral edema bilaterally and +adaquate pulses at feet bilaterally . Abdomen: soft, nondistended, nontender, no hepatosplenomegaly or masses, no abdominal bruit External ears and canals clear bilaterally. TM's normal bilaterally. Nose normal without lesions or discharge; no mucosal swelling. Oropharynx normal. Neck supple without palpable adenopathy. conjuctiva: clear bilaterally IMPRESSIONS/PLANS: Gastroesophageal reflux disease, unspecified whether esophagitis present Anxiety state Recurrent vomiting (primary encounter diagnosis) Hypercalcemia Weight loss Elevated bilirubin in pt with 20 # weight loss seems mildly anxious unclear if he loves his chosen major/ how GPA is going neg eval thus far except for some paltry lab abnormalities rule out hyperthy, hyperparathy, check additional lfts ? Phillip's sw from Zoloft to abilify for weight gain and try Wellbutrin consider abilify consider STUDENT [employer]S COORDINATOR imaging although has no focal neuro issues no CENTENO recc sparing use ativan see orders virtual visit re eval with me in 3-4 w Veronica Qiu MD May 02, 2024 : spoke to patient symptoms = same , tolerating wellbutrin, less ativan use Last labs reviewed at length. Veronica Qiu MD documented in this encounter [facility] 2024 Telephone encounter Note No chief complaint on file. received via electronic Fax. Records have been uploaded to [employer] (via [employer]) and will be available in Chart Review within 24 hours. Barb Rivera MA Records from [facility] [employer] uploaded to scanned documents [facility] 2024 Miscellaneous Notes No chief complaint on file. received via electronic Fax. Records have been uploaded to [employer] (via [employer]) and will be available in Chart Review within 24 hours. Barb Rivera MA Records from [facility] [employer] uploaded to scanned documents documented in this encounter [facility] 03-30-2024 History of Present illness Narrative Images from the original note were not included. Subjective Patient ID: Emerson Taylor is a 18 y.o. male who presents for stomach issues. This has been happening for a while now, he has seen dr ditty had a scope done he was put on omeprazole, pt also has a referral for behavioral health he was put on zoloft Pt did go to ER last night at [facility] for vomiting all day , he did get iv with ativan zofran and pepcid, he did have a CT while there , everything was good Current Outpatient Medications on File Prior to Visit Medication Sig Dispense Refill Multiple Vitamins-Minerals (MULTIVITAMIN GUMMIES MENS PO) Take by mouth omeprazole (PriLOSEC) [address] capsule Take 40 mg by mouth in the morning and 40 mg in the evening. Take before meals. sertraline (Zoloft) 25 MG tablet Take 1 tablet (25 mg) by mouth Daily for 7 days, THEN 2 tablets (50 mg) Daily for 21 days. 49 tablet 0 [DISCONTINUED] pantoprazole (Protonix) 40 MG EC tablet Take 1 tablet (40 mg) by mouth Daily as needed (Reflux) Do not crush, chew, or split. 90 tablet 1 No current facility-administered medications on file prior [...] Vaping status: Never Used Substance Use Topics Drug use: Never No family history on file. Past Medical History: Diagnosis Date Abnormal laboratory test 11/17/2023 Severe acute respiratory syndrome coronavirus 2 (SARS-CoV-2) detected 11/17/2023 Slow transit constipation 11/17/2023 History reviewed. No pertinent surgical history. Visit Vitals Smoking Status Never Review of Systems Constitutional: Negative. HENT: Negative. Eyes: Negative. Respiratory: Negative. Cardiovascular: Negative. Gastrointestinal: Positive for nausea and vomiting. Genitourinary: Negative. Musculoskeletal: Negative. Skin: Negative. Neurological: Negative. Psychiatric/Behavioral: Negative. Objective Physical Exam Vitals reviewed. HENT: Head: Normocephalic. Mouth/Throat: Mouth: Mucous membranes are moist. Pharynx: Oropharynx is clear. Cardiovascular: Rate and Rhythm: Normal rate. Pulmonary: Effort: Pulmonary effort is normal. Skin: General: Skin is warm and dry. Neurological: General: No focal deficit present. Mental Status: He is alert and oriented to person, place, and time. Psychiatric: Mood and Affect: Mood is anxious. Speech: Speech normal. Behavior: Behavior is cooperative. Thought Content: Thought content normal. Cognition and Memory: Memory normal. Judgment: Judgment normal. Assessment/Plan Diagnoses and all orders for this visit: YANELY (generalized anxiety disorder) ([facility]) - LORazepam (Ativan) 0.5 MG tablet; Take 1 tablet (0.5 mg) by mouth every 6 (six) hours if needed for anxiety Take medication as directed. Verbalizes understanding of the need to be seen in the ER for excessive stress, elevated blood pressure or palpitations. Advised on relaxation methods to decrease anxiety and depression. Pt offers understanding of treatment plan. Bilious vomiting with nausea Continue with the zofran as needed. Also continue with the Omeprazole until we can control the anxiety. Eventually, when the anxiety is not an issue, you may not need these meds any longer. No follow-ups on file. documented in this encounter [facility] 03-28-2024 History of Present illness Narrative Images from the original note were not included. Emerson Taylor is a 18 y.o. male who presents as a new patient for psychiatric evaluation and medication management. HPI: Reason for visit: Emerson Taylor has been experiencing problems with anxiety since this past summer. He reports being at [place] with his girlfriends parents this past summer and was having problems with nausea and feeling like something was in his throat. He reports that he ended up seeing his PCP, getting an EGD that showed irritation in stomach. He has been on Omeprazole for GERD for several months, with some improvement in symptoms. He reports the issue with his throat is no longer there. He reports still having problems with being anxious on a regular basis and is here to discuss medication options. Developmental History: Born full term. Denies any problems with meeting developmental milestones. Denies any exposure to drugs or alcohol in-utero. He was raised by biological parents. He reports a good childhood. He states he has 2 siblings - older brother (22) and younger sister (18). Past Psychiatric History: Previous diagnoses: None Previous psychiatric treatment: None Previous medications: None Current medications: None Previous psychiatric hospitalizations: Denies Previous suicide attempts or self harm: Denies History of violence: Denies History of trauma: Denies any history of physical, emotional or sexual trauma. Education: Went to [employer]. Got straight As and Bs in school. Played football, basketball, wrestling and baseball. 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 Also plays football at [employer]. Is hoping to get a job in engineering once he graduates. Legal history: Denies Family history of mental health conditions: None PHQ-9 score: 7 YANELY-7 score: 12 Substance Abuse History: Recreational drugs: Denies Use of alcohol: Denies Use of caffeine: A pop here and there Tobacco or vaping use: Denies Patient Care Team: Frank Ramirez MD as PCP - General (Family Medicine) SUBJECTIVE: PAST MEDICAL HISTORY: Past Medical History: Diagnosis Date Abnormal laboratory test 11/17/2023 Severe acute respiratory syndrome coronavirus 2 (SARS-CoV-2) detected 11/17/2023 Slow transit constipation 11/17/2023 Patient denies any history of heart problems, head trauma, seizures, stroke/TIA, infectious disorders (e.g., meningitis), lung disorders, tics/tourette s, eating disorders. MEDICATIONS: Current Outpatient Medications Medication Instructions Multiple Vitamins-Minerals (MULTIVITAMIN GUMMIES MENS PO) Take by mouth omeprazole (PRILOSEC) 40 mg, 2 times daily before meals ALLERGIES: Allergies Allergen Reactions Azithromycin Rash and Swelling Was a baby and not sure about allergy Ceftriaxone Hives and Swelling Was a child and not sure of reaction SURGICAL HISTORY: No past surgical history on file. FAMILY HISTORY: No family history on file. SOCIAL HISTORY: Social History Tobacco Use Smoking status: Never Smokeless tobacco: Never Vaping Use Vaping status: Never Used Substance Use Topics Drug use: Never Depression: Not on file Relationship/marital status: Has been with same girlfriend for the past 3 years. Reports they have a good relationship Living situation: Lives with 1 male roommate at college. PSYCHIATRIC REVIEW OF SYMPTOMS AND MENTAL STATUS EXAM Psychiatric Review Of Systems: Sleep: Patient admits to some nights where he has interrupted sleep. Appetite changes: Reports poor appetite when he is anxious Weight changes: Reports losing 10 lbs over the summer due to appetite. Energy: Denies any issues with fatigue or excessive energy. Interest/pleasure/anhedonia: Denies Concentration: Denies any problems Agitation/Irritability: Denies Impulsivity: Patient denies any problems with extreme impulsivity without regard for consequences. Grandiosity: Patient denies any feelings of inflated self esteem or self image. Flight of ideas: Patient denies. Anxiety/panic: Admits to feeling anxious most days. States he has a lot of social anxiety and being around new people. Reports anxiety over school and sports. States he has a lot of stress that he deals with Guilty/hopeless: Denies Self-injurious behavior/risky behavior: Denies Suicidal ideation: Denies Suicidal plan: Denies Any current drug use?: Denies Any current alcohol use?: Denies Appearance Appearance: Casual dress, normal grooming and hygiene Attitude Attitude: Cooperative, conversant, engaged, and with good eye contact. Behavior Cooperative, conversant, engaged, and with good eye contact. Speech Normal, clear, regular rate, rhythm and volume Affect Anxious Mood Anxious Thought Process Organized and Clear Thought Content: Denies suicidal and homicidal ideation. Perception: Denies visual, auditory, and tactile hallucinations. Denies derealization and depersonalization. Orientation Appropriate to age Memory/Concentration Short term intact and superintendent container terminal intact Insight/Judgement Good OBJECTIVE: Visit Vitals BP 128/82 (BP Location: Right arm, Patient Position: Sitting) Pulse 85 Wt 162 lb BMI 22.12 kg/m Smoking Status Never BSA 1.93 m Lab results: None done since 2021. ASSESSMENT AND PLAN: Impression: 1) Generalized Anxiety - As evidenced by excessive worry and anxiety occurring more days than not for at least 6 months about a number of events or activities; individual finds it difficult to control worry; anxiety and worry are associated with restlessness, feeling on edge, being easily fatigued, difficulty concentrating and mind going blank, irritability, muscle tension, and sleep disturbance. Assessment/Plan Diagnoses and all orders for this visit: YANELY (generalized anxiety disorder) ([facility]) - Ambulatory referral to Behavioral Health - sertraline (Zoloft) 25 MG tablet; Take 1 tablet (25 mg) by mouth Daily for 7 days, THEN 2 tablets (50 mg) Daily for 21 days. Treatment Plan/Recommendations: - Start Sertraline 25 mg daily for 7 days then increase to 50 mg daily for anxiety. - Encouraged counseling for additional mental health support, as well as long-term success with anxiety treatment. Reviewed the risks, benefits, and potential side effects from the medications, including SI. The patient agrees the benefits outweigh the risks and agrees to treat their symptoms. Discussed treatment plan, the patient was allowed time to ask questions, and the patient agreed with the plan moving forward. Instructed patient to call office with any complications or potential side effects. Patient instructed to present to the local ER or call Suicide Hotline (422) for any psychosis, suicidal or homicidal ideation, or with any risk of harm to self or others. Recommend to follow-up in 4-6 weeks to re-evaluate symptoms. Discussed follow-up plan with patient, and encouraged patient to call office sooner if symptoms worsen or if any questions/concerns arise. Patient was seen Face to Face, Total time spent with patient was 45 minutes, which includes reviewing chart documents, previous notes/records, counseling and discussion with patient and/or coordination of care as described above. documented in this encounter [facility] 12-21-2023 Procedure note [facility] 12-16-2023 Hospital Discharge instructions Mika Cochran APRN - CNP - 12/16/2023 12:00 PM EDT Continue pantoprazole as. Small amounts of fluids frequently Small amounts of fluids frequently to keep your calorie intake Follow-up with bung remover next week as planned Follow-up with family physician as needed The following attachments cannot be sent through Care Everywhere.Nausea and Vomiting (Vietnamese)documented in this encounter [facility] 02-16-2022 Hospital Discharge instructions HERMINIO Darnell CNP - 02/16/2022 12:07 PM EDT Suggestions for symptom management that are available over the counter. If you have questions regarding allergies or contraindications to use, please speak to the pharmacy staff or your family provider. For fevers or pain: acetaminophen (Tylenol), ibuprofen (Motrin) For dry cough: medications containing dextromethorphan, such as Delsym, Robitussin DM or Mucinex DM and medicated throat lozenges For congestion or sinus pressure: decongestant nasal sprays, such as Afrin (for up to 3 days), medications containing guaifenesin to help break up mucus, such as Mucinex or Robitussin, nasal steroid sprays, such as Flonase, Sensimist, Rhinocort or Nasonex and saline nasal sprays, neti pot or sinus rinse bottle For runny nose, sneezing or watery/itchy eyes: less sedating antihistamines, such as loratidine (Claritin), fexofenadine (Shayy) or Cetirizine (Zyrtec) and antihistamine eye drops, such as ketotifen (Zaditor, Alaway) or olopatadine (Pataday) For sore throat: Chloraseptic throat spray or sore throat lozenges If you have high blood pressure, a brand like Coricidin HBP may be an option.you should avoid medications containing pseudoephedrine or phenylephrine, such as Sudafed, running a humidifier in your bedroom may be helpful for many of your symptoms. If your cough is keeping you awake at night, you can try raising your head with an extra pillow. If the skin around your nose and lips becomes sore, you can put some petroleum jelly on the area. Suggestions for [id number] supplements to help your immune system, if you have questions regarding allergies or contraindications to use, please speak to the pharmacy staff or your family provider. Multi-vitamin/multi-mineral daily Vitamin D3 3000 IU daily Zinc 30 mg daily Vitamin C 1000 mg twice daily B-100 complex as daily as directed on bottle Gargle with mouthwash 3 times daily, may use Scope, Crest, or Listerine. The following attachments cannot be sent through Care Everywhere.URI (Upper Respiratory Infection): Viral (Vietnamese)documented in this encounter [facility] [employer] Work Phone: Evaluation note Diagnosis Common cold- Primary Acute nasopharyngitis (common cold) documented in this encounter [employer] Work Phone: evaluation noteNo assessment information available [facility] Work Phone: Evaluation note* Diagnosis YANELY (generalized anxiety disorder) (CMS/HCC) Generalized anxiety disorder documented in this encounter [facility] note* Diagnosis YANELY (generalized anxiety disorder) (CMS/HCC)- Primary Generalized anxiety disorder Bilious vomiting with nausea documented in this encounter [facility] note* Diagnosis YANELY (generalized anxiety disorder) (CMS/HCC) Generalized anxiety disorder documented in this encounter [facility] note* Diagnosis YANELY (generalized anxiety disorder) (CMS/HCC) Generalized anxiety disorder documented in this encounter [facility] HealthcareEvaluation note* Diagnosis Recurrent vomiting- Primary Vomiting alone Gastroesophageal reflux disease, unspecified whether esophagitis present Anxiety state Anxiety state, unspecified Hypercalcemia Weight loss Loss of weight Elevated bilirubin Jaundice, unspecified, not of [facility] Diagnosis YANELY (generalized anxiety disorder) (CMS/HCC) Generalized anxiety disorder documented in this encounter [facility] HealthcareEvaluation note* Diagnosis Anxiety- Primary Anxiety state, unspecified [facility] Diagnosis Vomiting without nausea, unspecified vomiting type- Primary documented in this encounter [facility] note* Diagnosis Anxiety Anxiety state, unspecified [facility]* Diagnosis Onset Date Resolution Status Admit Date YANELY (generalized anxiety disorder) acute October 27, 2024 12:49pm GERD (gastroesophageal reflu x disease) acute October 27, 2024 12:49pm Nausea & vomiting acute October 272024 12:49pm [facility] Work Phone: Evaluation note* Diagnosis Acute pain of both knees- Primary documented in this encounter [facility] HealthcareHistory and physical note Author Louis Fuchs [facility] December 21, 2023 1:11pm Note Date/Time December 21, 2023 1: 11pm [facility] [address] [place] [address] Gastroenterology H&P Signed Patient: Emerson Taylor MR#: [id number] : 2005 Acct:[id number] Age/Sex: 18 / M Adm Date: 4 Loc: Room: Type: [facility] Attending Dr: Louis Fuchs MD Copies to: MD Frank Redmond MD~ Date of Service: 12/21/2023 HISTORY & PHYSICAL: Patient's history with special attention to the cardiovascular, pulmonary systems and the current problem was reviewed with the patient immediately prior to the procedure. Present medications and doses reviewed in the EMR. Allergies and pertinent laboratory tests were also reviewedat this time in the EMR. The physical examination, as below, was then performed. Indication, assessment and HPI: 18-year-old male presents for EGD to evaluate GERD and dysphagia, history of PPI use which failed to control symptoms. Family history of GI malignancy? no PHYSICAL EXAMINATION Mouth and Pharynx : moist mucus membranes, normal dentition Cardiac: regular rate, regular rhythm Pulmonary: normal respiratory effort, able to speak in complete sentences Neurological: alert and oriented x3, no focal deficits noted Abdomen: Abdomen soft, non-tender REVIEW OF SYSTEMS Constitutional: Denies malaise, fevers Cardiovascular: Denies chest pain, palpitations Respiratory: Denies shortness of breath, wheezing Gastrointestinal: Per HPI Genitourinary: Denies dysuria, polyuria Musculoskeletal: Denies joint swelling, joint stiffness Neurological: Denies numbness, tingling Integumentary: Denies rashes, skin lesions Endocrine: Denies fatigue, weight loss Written informed consent obtained from the patient. Risks (including but not limited to perforation, infection, bloating, bleeding, need for emergent surgeryand loss of life), benefits and alternatives explained and questions answered. The patient verbalized understanding. Based on history patient is an appropriate candidate for the procedure. Louis Fuchs MD Documented By: Louis Fuchs MD 12/21/23 1310 Signed By: <Electronically signed by Louis Fuchs MD> 12/21/23 1311 [facility] Work Phone: Reason for referral (narrative)No reason for referral information availableOhio[facility] Work Phone: Summary Purpose Family History Relationship Condition Age at Onset Recorded Date/T janet Not Specified No pertinent family history Unknown Advance Directives Advance Directive Response Recorded Date/ Time Advance Directives No November 26 8:43am Chief Complaint and Reason for Visit Chief Complaint GERD/Dysphagia GERD/Dysphagia Chief Complaint Admit Date 6 month follow up October 27, 2024 12:4 9pm Reason for Visit Admit Date YANELY (generalized anxiety disorder) October 27, 2024 12:49pm GERD (gastroesophageal reflux disease) [facility] 2024 12:49pm Nausea & vomiting October 27, 2024 12:4 9pm Reason for Referral Specialty Diagnoses / Procedures Referred By Contac t Referred To Contact [place] [id number] [address] Referral ID Status Reason Start Date Expiration Date Visits Re quested Visits Authorized [id number] Closed 1 1 Additional Source Comments (unrecognized sect ion and content) No Status Records FoundNo Status Records FoundNo Status Records FoundNo Status Records FoundNo Status Records FoundNo Status Records FoundNo Status Records Found INFORMATION SOURCE (unrecogn ized section and content) DATE CREATED AUTHOR 05/20/2021 [facility] DATE CREATED AUTHOR AUTHOR'S ORGANIZ ATION 08/10/2021 [facility] DATE CREATED AUTHOR AUTHOR'S ORGANIZ ATION 12/18/2023 [facility] DATE CREATED AUTHOR AUTHOR'S ORGANIZ ATION 12/29/2023 [facility] DATE CREATED AUTHOR AUTHOR'S ORGANIZ ATION 05/15/2024 [facility] EPIC DATE CREATED AUTHOR AUTHOR'S ORGANIZ ATION 05/17/2024 [facility] DATE CREATED AUTHOR AUTHOR'S ORGANIZ ATION 05/24/2024 [facility] Reason for Visit (unrecogniz ed section and content) Reason Comments Cough Fever Generalized Body Aches Reason Comments Psychiatric Evaluation Specialty Diagnoses / Procedures Referred By Contac t Referred To Contact Behavioral Health Diagnoses Counseling, unspecified Procedures [place] OFFICE/OUTPATIENT [facility] Frank Ramirez MD [address] [facility] [address] [place] [address] Phone: tel: fax: [facility] [address] [facility] [address] [place] [address] Phone: tel: fax: Referral ID Status Reason Start Date Expiration Date Visits Requested Visits Authorized [id number] Pending Review Specialty Services Required 4 09/24/2024 1 1 Reason Comments stomach issues Reason Comments Anxiety Reason Comments Nausea Nausea/vomiting for a few months intermittent, had EGD done, on anxiety meds Reason Comments Med Management Follow-up Reason Comments Patient Question Reason Comments Gastroesophageal Reflux Reason Comments Med Change Request Care Teams (unrecognized sec tion and content) Laborer Driver Relationship Specialty Start Date End Date Frank Ramirez MD [address] [place] [address] PCP - General Family Medicine 02/16/22 Team Status: Active Member Role Status Dates Frank Ramirez MD Primary Care Provider Active Team Status: Inactive Member Role Status Dates Louis Fuchs MD Attending Provider Active S tart: December 21, 2023 End: December 21, 2023 Frank Ramirez MD Primary Care Provider Active S tart: December 21, 2023 End: December 21, 2023 Team Status: Active Member Role Status Dates Louis Fuchs MD Attending Provider, Other Provider Active Start: December 21, 2023 Frank Ramirez MD Primary Care Provider Active S tart: December 21, 2023 Laborer Driver Relationship Specialty Start Date End Date Frank Ramirez MD [address] [facility] [address] [place] [address] PCP - General Family Medicine 09/09/22 Cecelia Waldron NP [address] [facility] [address] [place] [address] Nurse Practitioner Behavioral Health 03/28/24 Laborer Driver Relationship Specialty Start Date End Date Frank Ramirez MD [address] [facility] [address] [place] [address] PCP - General Family Medicine 09/09/22 Cecelia Waldron NP [address] [facility] [address] [place] [address] Nurse Practitioner Behavioral Health 03/28/24 Laborer Driver Relationship Specialty Start Date End Date Frank Ramirez MD [address] [facility] [address] [place] [address] PCP - General Family Medicine 09/09/22 Cecelia Waldron NP [address] [facility] [address] [place] [address] Nurse Practitioner Behavioral Health 03/28/24 Laborer Driver Relationship Specialty Start Date End Date Frank Ramirez MD [address] [facility] [address] [place] [address] PCP - General Family Medicine 09/09/22 Cecelia Waldron NP [address] [facility] [address] [place] [address] Nurse Practitioner Behavioral Health 03/28/24 Laborer Driver Relationship Specialty Start Date End Date Frank Ramirez MD [address] [facility] [address] [place] [address] PCP - General Family Medicine 09/09/22 Cecelia Waldron NP [address] [facility] [address] [place] [address] Nurse Practitioner Behavioral Health 03/28/24 Laborer Driver Relationship Specialty Start Date End Date Frank Ramirez MD PCP - General Family Medicine 02/16/22 Team Status: Inactive Member Role Status Dates Frank Ramirez MD Primary Care Provider Active S tart: October 27, 2024 End: October 27, 2024 Louis Fuchs MD Attending Provider Active S tart: October 27, 2024 End: October 27, 2024 Laborer Driver Relationship Specialty Start Date End Date Frank Ramirez MD [address] [facility] [address] [place] [address] PCP - General Family Medicine 09/09/22 Cecelia Waldron [facility] [address] [facility] [address] [place] [address] PCP - [employer] Commercial 07/02/24 Laborer Driver Relationship Specialty Start Date End Date Frank Ramirez MD [address] [facility] [address] [place] [address] PCP - General Family Medicine 09/09/22 Cecelia Waldron [facility] [address] [facility] [address] [place] [address] PCP - [employer] Commercial 07/02/24 Source Comments (unrecognize d section and content) In the event this informatio n is protected by the [facility] Confidentiality of Alcohol and Drug Abuse Patient Records regulations: The Federal rules restrict any use of the information to criminally investigate or prosecute any alcohol or drug abuse patient.[facility] the event this information is protected by the Federal Confidentiality of Alcohol and Drug Abuse Patient Records regulations: The Federal rules restrict any use of the information to criminally investigate or prosecute any alcohol or drug abuse patient.[facility] the event this information is protected by the Federal Confidentiality of Alcohol and Drug Abuse Patient Records regulations: The Federal rules restrict any use of the information to criminally investigate or prosecute any alcohol or drug abuse patient.[facility] the event this information is protected by the Federal Confidentiality of Alcohol and Drug Abuse Patient Records regulations: The Federal rules restrict any use of the information to criminally investigate or prosecute any alcohol or drug abuse patient.[facility] the event this information is protected by the Federal Confidentiality of Alcohol and Drug Abuse Patient Records regulations: The Federal rules restrict any use of the information to criminally investigate or prosecute any alcohol or drug abuse patient.[facility] the event this information is protected by the Federal Confidentiality of Alcohol and Drug Abuse Patient Records regulations: The Federal rules restrict any use of the information to criminally investigate or prosecute any alcohol or drug abuse patient.[facility] Goals (unrecognized section and content) Goals may be documented in a n alternate section FOR RECORDS PERTAINING TO PATIENTS WHO ARE OR HAVE BEEN ENROLLED IN A CHEMICAL DEPENDENCY/SUBSTANCEABUSE PROGRAM, SOME INFORMATION MAY BE OMITTED. This clinical summary was aggregated from multiple sources. Caution should be exercised in using it in the provision of clinical care. This summary normalizes information from multiple sources, and as a consequence, information in this document may materially change the coding, format and clinical context of patient data. In addition, data may be omitted in some cases. CLINICAL DECISIONS SHOULD BE BASED ON THE PRIMARY CLINICAL RECORDS. [facility] [employer] [facility]. provides no warranty or guarantee of the accuracy or completeness of information in this document.
== END 2024-11-01 10:32 | disposition home or self-care (01) ==
PROVIDERS: PCP Family Medicine; Visit Provider Nurse Practitioner Family
DX: M25.561 Pain in right knee (principal); M25.562 Pain in left knee
CPT/HCPCS: 73562